=== PATIENT | female | born 1990 ===

== ENCOUNTER 2018-03-03 12:01 | Emergency (ER) | payer SELFPAY ==
[2018-03-03 12:16] VITALS: BMI 41.5
[2018-03-03 12:24] VITALS: RESP 18; O2SAT 98
[2018-03-03] MEDS ORDERED: Aluminum Hydroxide/Magnesium 30 ML, DiphenhydrAMINE 75 MG, Lidocaine 2% Viscous 30 ML PO ONE (12:30)
--- NOTE | 2018-03-03 12:34 | ED PDOC ---
Arrival/HPI - General Chief Complaint: Dental Pain Time Seen by Provider: 03/03/18 12:04 Historian: Patient - History of Present Illness Narrative History of Present Illness (Text): 03/03/18 12:30 28 y/o F w/ no past medical history presenting to the Emergency Room for left sided neck lump she discovered over 1 week ago. The patient reports tenderness to palpation, odynophagia and pain with chewing to the left jaw. She reports going to her PMD who prescribed her a dose of Amoxacillin in which she saw no improvement in pain and was then instructed to have CT imaging performed. She also reports seeing an ENT physician who prescribed her doxycycline with no change in symptoms. She had the CT scan performed and it revealed a reactive lymph node as well as a sialolith & since then has noted an increase in the size of the lump. PCP: Dr. Saucedo Time/Duration: > week Symptom Onset: Gradual Symptom Course: Unchanged Quality: Aching Activities at Onset: Rest Context: Home Past Medical History - Provider Review Nursing Documentation Reviewed: Yes - Travel History Have you recently traveled outside [place] w/in the past 3 mons?: No - Infectious Disease Hx of Infectious Diseases: None - Cardiac Hx Cardiac Disorders: No - Pulmonary Hx Respiratory Disorders: No - Neurological Hx Neurological Disorder: No - HEENT Hx HEENT Disorder: No - Renal Hx Renal Disorder: No - Endocrine/Metabolic Hx Diabetes Mellitus Type 2: Yes - Hematological/Oncological Hx Blood Disorders: No - Integumentary Hx Dermatological Disorder: No - Musculoskeletal/Rheumatological Hx Falls: No - Gastrointestinal Hx Gastrointestinal Disorders: No - Genitourinary/Gynecological Hx Genitourinary Disorders: No - Psychiatric Hx Psychophysiologic Disorder: No Hx Depression: No Hx Emotional Abuse: No Hx Physical Abuse: No Hx Substance Use: Yes - Surgical History Hx Orthopedic Surgery: Yes (fx left femur) - Suicidal Assessment Feels Threatened In Home Enviroment: No Family/Social History - Physician Review Nursing Documentation Reviewed: Yes Family/Social History: Unknown Family HX Smoking Status: Never Smoked Hx Alcohol Use: Yes (SOCIALLY) Hx Substance Use: Yes Substance used: CANNABIS Hx Substance Use Treatment: No Allergies/Home Meds Allergies/Adverse Reactions: Allergies No Known Allergies Allergy (Verified 01/09/17 06:37) Home Medications: Home Meds Medication Instructions Recorded Confirmed Norethindrone-E.estradiol-Iron 1 tab PO DAILY 08/22/11 01/09/17 [Loestrin 24 Fe 20 Mcg-75 mg-1 mg] Physical Exam Vital Signs Temp Pulse Resp BP Pulse Ox 03/03/18 12:02 98 F 104 H 18 160/110 H 98 Medical Decision Making ED Course and Treatment: 03/03/18 12:49 Impression 28 y/o F w/ left sided neck lump Differential Diagnoses Includes But Is Not Limited To: --Sialoadenitis/Sialolith --Reactive Lymphadenitis --Brachial Cleft Cyst Plan --Magic Mouthwash --Percocet --Bedside US --Surgery/ENT consult --Reassess & disposition Progress Notes 03/03/18 13:11 Surgery resident evaluates patient at the bedside, confirming sialolith presence seen on bedside. 03/03/18 13:[address] Abdalla(ENT) who recommends patient to come see him in office tomorrow. He recommends continued warm compresses and milking for the expression of the stone through the duct. Shared decision making for appropriate follow up care discussed with patient who agrees with management plan. She will continue conservative management at home and will follow up with ENT. She is stable for discharge. Disposition/Present on Arrival - Present on Arrival Any Indicators Present on Arrival: Yes History of DVT/PE: No History of Uncontrolled Diabetes: Yes Urinary Catheter: No History of Decub. Ulcer: No History Surgical Site Infection Following: None - Disposition Have Diagnosis and Disposition been Completed?: Yes Diagnosis: Sialolithiasis of submandibular gland, Sialadenitis Disposition: HOME/ ROUTINE Disposition Time: 13:23 Patient Plan: Discharge Condition: STABLE Discharge Instructions (ExitCare): Salivary Gland Infection (DC) Print Language: KOSOVAN Additional Instructions: Please follow up with Dr. Abdalla(ENT) at the beginning of the day tomorrow Continue warm compresses to the area and gently massage the area. Prescriptions: Acetaminophen/Oxycodone Hydr [Oxycodone and Acetaminophen 325 mg-2.5 mg] 1 tab PO Q8H #4 tab Mag&Al/Simet/Diphen/Lido [First Magic Mouthwash] 30 ml MM Q6H #1 kit Referrals: Ryan Abdalla DO [Staff Provider] - Follow up with primary Vance Saucedo DO [Family Provider] - Follow up with primary Forms: [employer] (Nepali)
[2018-03-03] MEDS ORDERED: Oxycodone/Acetaminophen 5/325 mg Tab PO STA (13:23)
[2018-03-03 14:07] VITALS: BP 155/89; TEMP 98
[2018-03-03 14:09] VITALS: PULSE 98
== END 2018-03-03 14:07 | disposition home or self-care (01) ==
LOC: ED 12:01
DX: K11.5 Sialolithiasis (principal); K11.20 Sialoadenitis, unspecified; E11.9 Type 2 diabetes mellitus without complications

== ENCOUNTER 2018-03-07 01:08 | Inpatient (IN) | payer OTHER ==
[2018-03-07 01:08] VITALS: BMI 29.8
[2018-03-07] MEDS ORDERED: Sodium Chloride 0.9% 1,000 ML IV SCH (01:45)
[2018-03-07] MEDS ORDERED: Morphine 4 mg/ml ISec IVP STA ×2 (01:45→02:04)
--- NOTE | 2018-03-07 02:04 | ED PDOC ---
Arrival/HPI - General Chief Complaint: ENT Problem Time Seen by Provider: 03/07/18 01:28 Historian: Patient - History of Present Illness Narrative History of Present Illness (Text): 03/07/18 01:44 28 year old female, with no significant past medical history, presents to the emergency department with left sided neck lump she discovered over 2 weeks ago. Patient informs having tenderness and worsening odynophagia. Patient informs that between her visits to her PMD and ENT, she has taken Amoxacillin and doxycycline with no change in symptoms. Patient states she had a CT scan performed and it revealed a reactive lymph node as well as a sialolith & since then has noted an increase in the size of the lump. Patient states she went to [facility] today and waited 9 hours for admission. Patient states they planned to give her IV antibiotics, but they kept her waiting in the [place]otts. Patient was given Percocet and Morphine for her pain, and Unasyn (Last dose 23:00). Patient came here for admission given that she was waiting at [facility] too long. She denies any worsening symptoms over the day. Patient denies any headache, dizziness, chest pain, shortness of breath, cough, abdominal pain, nausea, vomiting, diarrhea, back pain, or any other complaint. PCP: Dr. Saucedo ENT: Dr. Nicholas Time/Duration: > week (2 weeks) Symptom Course: Unchanged Activities at Onset: Light Past Medical History - Provider Review Nursing Documentation Reviewed: Yes - Infectious Disease Hx of Infectious Diseases: None - Cardiac Hx Cardiac Disorders: No - Pulmonary Hx Respiratory Disorders: No - Neurological Hx Neurological Disorder: No - HEENT Hx HEENT Disorder: No - Renal Hx Renal Disorder: No - Endocrine/Metabolic Hx Diabetes Mellitus Type 2: Yes - Hematological/Oncological Hx Blood Disorders: No - Integumentary Hx Dermatological Disorder: No - Musculoskeletal/Rheumatological Hx Falls: No - Gastrointestinal Hx Gastrointestinal Disorders: No - Genitourinary/Gynecological Hx Genitourinary Disorders: No - Psychiatric Hx Psychophysiologic Disorder: No Hx Depression: No Hx Emotional Abuse: No Hx Physical Abuse: No Hx Substance Use: Yes - Surgical History Hx Orthopedic Surgery: Yes (fx left femur) Hx Tonsillectomy: Yes - Anesthesia Hx Anesthesia: Yes Hx Anesthesia Reactions: No Hx Malignant Hyperthermia: No - Suicidal Assessment Feels Threatened In Home Enviroment: No Family/Social History - Physician Review Nursing Documentation Reviewed: Yes Family/Social History: No Known Family HX Smoking Status: Never Smoked Hx Alcohol Use: Yes (SOCIALLY) Hx Substance Use: Yes Substance used: CANNABIS Hx Substance Use Treatment: No Allergies/Home Meds Allergies/Adverse Reactions: Allergies No Known Allergies Allergy (Verified 03/07/18 01:27) Home Medications: Home Meds Medication Instructions Recorded Confirmed Norethindrone-E.estradiol-Iron 1 tab PO DAILY 08/22/11 03/07/18 [Loestrin 24 Fe 20 Mcg-75 mg-1 mg] Review of Systems - Physician Review All systems were reviewed & negative as marked: Yes - Review of Systems Constitutional: absent: Fatigue, Weight Change Eyes: absent: Vision Changes, Photophobia ENT: Sore Throat. absent: Hearing Changes, Tinnitus, Voice Changes, Rhinorrhea, Epistaxis, Sinus Congestion Respiratory: absent: SOB, Cough, Sputum Cardiovascular: absent: Chest Pain Gastrointestinal: absent: Abdominal Pain, Diarrhea, Nausea, Vomiting Musculoskeletal: absent: Neck Pain Neurological: absent: Headache, Dizziness Physical Exam Vital Signs Reviewed: Yes Vital Signs Temp Pulse Resp BP Pulse Ox 03/07/18 01:22 97.4 F L 113 H 18 135/93 H 100 Temperature: Afebrile Blood Pressure: Hypertensive Pulse: Tachycardic Respiratory Rate: Normal Appearance: Positive for: Well-Appearing, Non-Toxic, Comfortable Pain Distress: None Mental Status: Positive for: Alert and Oriented X 3 - Systems Exam Head: Present: Atraumatic, Normocephalic Pupils: Present: PERRL Extroacular Muscles: Present: EOMI Conjunctiva: Present: Normal Mouth: Present: Moist Mucous Membranes, Normal Lips, Normal Tounge, Normal Teeth. No: Drooling, Trismus Neck: Present: Lymphadenopathy (with submandibular swelling), Trachea Midline, Other (no ludwigs angina, able to open mouth well. no uvula deviation or peritonsillar abscess. No floor erythema. ). No: Meningeal Signs, MIDLINE TENDERNESS, JVD, Bruit Respiratory/Chest: Present: Clear to Auscultation, Good Air Exchange. No: Respiratory Distress, Accessory Muscle Use Cardiovascular: Present: Regular Rate and Rhythm, Normal S1, S2. No: Murmurs Abdomen: No: Tenderness, Distention, Peritoneal Signs Back: Present: Normal Inspection Upper Extremity: Present: Normal Inspection. No: Cyanosis, Edema Lower Extremity: Present: Normal Inspection. No: Edema Neurological: Present: GCS=15, CN II-XII Intact, Speech Normal Skin: Present: Warm, Dry, Normal Color. No: Rashes Psychiatric: Present: Alert, Oriented x 3, Normal Insight, Normal Concentration Medical Decision Making ED Course and Treatment: 03/07/18 02:12 Impression: 28 year old female presents with lymphadenopathy, submandibular. Was previously seen at [facility] and had CT as well as abx and pain control but pt left AMA 2/2 difficultly getting a room. She notes that her swelling has not worsened since then and she is still able to tolerate pills and water without issue. Uvula midline without change in phonation. Pt notes x2 weeks of dysphagia. No drooling or tripoding on exam. Likely submandibular lymphadentitis, recurrent. Plan: -- Labs -- EKG -- CMP -- CBC -- Morphine -- Zofran -- Unasyn -- Blood Cultures -- Reassess and disposition Prior Visits: Notes and results from previous visits were reviewed. Patient was last seen in the emergency department on Progress Notes: 03/07/18 02:19 EKG reviewed by me, shows: Sinus tachycardia @108bpm No STEMI 03/07/18 02:[address] Nicholas who states pt had CT at [facility] and not need patient to be rescanned. Asks that patient be admitted under Dr Saucedo- pt may need surgery if x3d abx fail. Pt in NAD and agreeable to admission plan. labs largely unremarkable - Scribe Statement The provider has reviewed the documentation as recorded by the Maranda Merlos Provider Scribe Attestation: All medical record entries made by the Scribdipti were at my direction and pers onally dictated by me. I have reviewed the chart and agree that the record accurately reflects my personal performance of the history, physical exam, medical decision making, and the department course for this patient. I have also personally directed, reviewed, and agree with the discharge instructions and disposition. Disposition/Present on Arrival - Present on Arrival Any Indicators Present on Arrival: No History of DVT/PE: No History of Uncontrolled Diabetes: Yes Urinary Catheter: No History of Decub. Ulcer: No History Surgical Site Infection Following: None - Disposition Have Diagnosis and Disposition been Completed?: Yes Diagnosis: Submandibular lymphadenitis Disposition Time: 02:19 Condition: GOOD
[2018-03-07 02:11] LABS: BASO # 0.03 K/mm3 (0.0-2.0); BASO % 0.6 % (0.0-3.0); EOS % 0.2 % (1.5-5.0); GRAN # 3.25 (1.4-6.5); GRAN % 67.4 % (50.0-68.0); HEMOGLOBIN 12.1 g/dL (12.0-16.0); LYMPH # 1.1 (1.2-3.4); LYMPH % 23.7 % (22.0-35.0); MEAN CELL VOLUME 82.4 fl (80.0-105.0); MEAN CORPUSCULAR HEMOGLOBIN 27.4 pg (25.0-35.0); MEAN CORPUSCULAR HGB CONC 33.2 g/dl (31.0-37.0); MEAN PLATELET VOLUME 10.5 fl (7.0-11.0); MONO # 0.4 (0.1-0.6); MONO % 8.1 % (1.0-6.0); RBC 4.42 10^6/uL (3.5-6.1); RED CELL DISTRIBUTION WIDTH 12.7 % (11.5-14.5); WHITE BLOOD COUNT 4.8 10^3/uL (4.5-11.0)
[2018-03-07 02:20] LABS: ALB/GLOB RATIO 1.2 (1.1-1.8); ALBUMIN 4.6 g/dL (3.0-4.8); ALT/SGPT 73 U/L (7-56); AST/SGOT 62 U/L (14-36); BLOOD UREA NITROGEN 7 mg/dL (7-21); CALCIUM 8.7 mg/dL (8.4-10.5); GFR NON-AFRICAN AMERICAN > 60
[2018-03-07 02:40] LABS: VENOUS BLOOD GAS BASE EXCESS 1.2 mmol/L (0.0-2.0); VENOUS BLOOD GAS PO2 47 mm/Hg (30-55); VENOUS BLOOD PH 7.35 (7.32-7.43)
[2018-03-07] MEDS ORDERED: Morphine 4 mg/ml ISec IVP PRN (09:14)
[2018-03-07] MEDS: Insulin Reg-MEDIUM-Coverage SC SCH ×3 (11:30→21:58)
--- NOTE | 2018-03-07 12:45 | CP.PCM.CON ---
<Matt Olivo - Last Filed: 03/07/18 14:50> History of Present Illness - History of Present Illness History of Present Illness: ENT Consult note for Dr. Nicholas 28F with no significal PMHx, presents to [facility] with complaints of left sided tender neck mass. Patient states she first noticed mass a little over two weeks ago. She states the mass along her mandible has gotten bigger and she is now having difficulty chewing and swallowing. Patient had been prescribed amoxicillin and doxycycline as outpatient but her symptoms have not resolved. At time of examination patient complained of headache. She also reported radiation of pain from her mandible and throughout left side of face. Denies chest pain/shortness of breath, nausea/vomiting, abdominal pain, dysuria. Past Patient History - Infectious Disease Hx of Infectious Diseases: None - Past Social History Smoking Status: Never Smoked - CARDIAC Hx Cardiac Disorders: No - PULMONARY Hx Respiratory Disorders: No - NEUROLOGICAL Hx Neurological Disorder: No - HEENT Hx HEENT Problems: No - RENAL Hx Chronic Kidney Disease: No - ENDOCRINE/METABOLIC Hx Diabetes Mellitus Type 2: Yes - HEMATOLOGICAL/ONCOLOGICAL Hx Blood Disorders: No - INTEGUMENTARY Hx Dermatological Problems: No - MUSCULOSKELETAL/RHEUMATOLOGICAL Hx Falls: No - GASTROINTESTINAL Hx Gastrointestinal Disorders: No - GENITOURINARY/GYNECOLOGICAL Hx Genitourinary Disorders: No - PSYCHIATRIC Hx Psychophysiologic Disorder: No Hx Depression: No Hx Emotional Abuse: No Hx Physical Abuse: No Hx Substance Use: Yes - SURGICAL HISTORY Hx Orthopedic Surgery: Yes (fx left femur) Hx Tonsillectomy: Yes - ANESTHESIA Hx Anesthesia: Yes Hx Anesthesia Reactions: No Hx Malignant Hyperthermia: No Meds Allergies/Adverse Reactions: Allergies Allergy/AdvReac Type Severity Reaction Status Date / Time No Known Allergies Allergy Verified 03/07/18 01:27 - Medications Medications: Current Medications Sodium Chloride (Sodium Chloride 0.9%) 1,000 mls @ 100 mls/hr IV .Q10H AMRIT Last Admin: 03/07/18 02:00 Dose: 100 mls/hr Meropenem (Merrem Iv 1 Gm Premix) 1 gm in 50 mls @ 12.5 mls/hr IVPB Q8 AMRIT; Protocol Stop: 03/16/18 14:01 Insulin Human Regular (Humulin R Med) 0 units SC ACHS [facility]; Protocol Morphine Sulfate (Morphine) 4 mg IVP Q3H PRN PRN Reason: Pain, moderate (4-7) Last Admin: 03/07/18 09:49 Dose: 4 mg Ondansetron HCl (Zofran Inj) 4 mg IVP Q6H PRN PRN Reason: Nausea/Vomiting Results - Vital Signs Recent Vital Signs: Last Vital Signs Temp 99 F 03/07/18 08:05 Pulse 101 H 03/07/18 08:05 Resp 20 03/07/18 08:05 BP 126/87 03/07/18 08:05 Pulse Ox 99 03/07/18 08:05 - Labs Result Diagrams: 03/07/18 01:56 03/07/18 01:56 Labs: Laboratory Results - last 24 hr 03/07/18 03/07/18 03/07/18 01:56 01:56 02:15 WBC 4.8 RBC 4.42 Hgb 12.1 Hct 36.4 MCV 82.4 MCH 27.4 MCHC 33.2 RDW 12.7 Plt Count 190 MPV 10.5 Gran % 67.4 Lymph % (Auto) 23.7 Vermillion % (Auto) 8.1 H Eos % (Auto) 0.2 L Baso % (Auto) 0.6 Gran # 3.25 Lymph # (Auto) 1.1 L Vermillion # (Auto) 0.4 Eos # (Auto) 0.0 Baso # (Auto) 0.03 pO2 47 VBG pH 7.35 VBG pCO2 50.0 VBG HCO3 27.6 VBG Total CO2 29.1 H VBG O2 Sat (Calc) 86.8 H VBG Base Excess 1.2 VBG Potassium 3.6 Glucose 120 H Lactate 1.1 FiO2 21.0 Sodium 139 140.0 Potassium 3.8 Chloride 105 104.0 Carbon Dioxide 25 Anion Gap 13 BUN 7 Creatinine 0.7 Est GFR ( Amer) > 60 Est GFR (Non-Af Amer) > 60 POC Glucose (mg/dL) Random Glucose 124 H Calcium 8.7 Total Bilirubin 0.6 AST 62 H D ALT 73 H Alkaline Phosphatase 79 Total Protein 8.4 H Albumin 4.6 Globulin 3.8 Albumin/Globulin Ratio 1.2 Venous Blood Potassium 3.6 03/07/18 11:14 WBC RBC Hgb Hct MCV MCH MCHC RDW Plt Count MPV Gran % Lymph % (Auto) Vermillion % (Auto) Eos % (Auto) Baso % (Auto) Gran # Lymph # (Auto) Vermillion # (Auto) Eos # (Auto) Baso # (Auto) pO2 VBG pH VBG pCO2 VBG HCO3 VBG Total CO2 VBG O2 Sat (Calc) VBG Base Excess VBG Potassium Glucose Lactate FiO2 Sodium Potassium Chloride Carbon Dioxide Anion Gap BUN Creatinine Est GFR ( Amer) Est GFR (Non-Af Amer) POC Glucose (mg/dL) 96 Random Glucose Calcium Total Bilirubin AST ALT Alkaline Phosphatase Total Protein Albumin Globulin Albumin/Globulin Ratio Venous Blood Potassium Assessment & Plan - Assessment and Plan (Free Text) Assessment: 28F w/ lymphadenitis Plan: -At this time will recommend continuation of IV ABx as per ID -May need eventual biopsy of lymph node should there be no response by next week -Medical management per primary team -D/w Dr. Yu Apple PGY3 <Vishnu Nicholas F - Last Filed: 03/07/18 19:19> Meds - Medications Medications: Current Medications Meropenem (Merrem Iv 1 Gm Premix) 1 gm in 50 mls @ 12.5 mls/hr IVPB Q8 [facility]; Protocol Stop: 03/16/18 14:01 Last Admin: 03/07/18 13:02 Dose: 12.5 mls/hr Dextrose/Sodium Chloride (Dextrose 5%/0.9% Ns 1000 Ml) 1,000 mls @ 100 mls/hr IV .Q10H [facility]RIT Last Admin: 03/07/18 12:57 Dose: 100 mls/hr Insulin Human Regular (Humulin R Med) 0 units SC ACHS [facility]; Protocol Last Admin: 03/07/18 16:30 Dose: Not Given Ketorolac Tromethamine (Toradol) 30 mg IVP Q6H PRN PRN Reason: Pain, moderate (4-7) Last Admin: 03/07/18 12:58 Dose: 30 mg Ondansetron HCl (Zofran Inj) 4 mg IVP Q6H PRN PRN Reason: Nausea/Vomiting Results - Vital Signs Recent Vital Signs: Last Vital Signs Temp 99.7 F H 03/07/18 14:29 Pulse 96 H 03/07/18 14:29 Resp 20 03/07/18 14:29 BP 125/85 03/07/18 14:29 Pulse Ox 97 03/07/18 14:29 - Labs Result Diagrams: 03/07/18 01:56 03/07/18 01:56 Labs: Laboratory Results - last 24 hr 03/07/18 03/07/18 03/07/18 01:56 01:56 02:15 WBC 4.8 RBC 4.42 Hgb 12.1 Hct 36.4 MCV 82.4 MCH 27.4 MCHC 33.2 RDW 12.7 Plt Count 190 MPV 10.5 Gran % 67.4 Lymph % (Auto) 23.7 Vermillion % (Auto) 8.1 H Eos % (Auto) 0.2 L Baso % (Auto) 0.6 Gran # 3.25 Lymph # (Auto) 1.1 L Vermillion # (Auto) 0.4 Eos # (Auto) 0.0 Baso # (Auto) 0.03 ESR pO2 47 VBG pH 7.35 VBG pCO2 50.0 VBG HCO3 27.6 VBG Total CO2 29.1 H VBG O2 Sat (Calc) 86.8 H VBG Base Excess 1.2 VBG Potassium 3.6 Glucose 120 H Lactate 1.1 FiO2 21.0 Sodium 139 140.0 Potassium 3.8 Chloride 105 104.0 Carbon Dioxide 25 Anion Gap 13 BUN 7 Creatinine 0.7 Est GFR ( Amer) > 60 Est GFR (Non-Af Amer) > 60 POC Glucose (mg/dL) Random Glucose 124 H Calcium 8.7 Total Bilirubin 0.6 AST 62 H D ALT 73 H Alkaline Phosphatase 79 Lactate Dehydrogenase C-Reactive Protein Total Protein 8.4 H Albumin 4.6 Globulin 3.8 Albumin/Globulin Ratio 1.2 Venous Blood Potassium 3.6 RPR Mycoplasma pneumon IgM 03/07/18 03/07/18 03/07/18 11:14 12:20 12:20 WBC RBC Hgb Hct MCV MCH MCHC RDW Plt Count MPV Gran % Lymph % (Auto) Vermillion % (Auto) Eos % (Auto) Baso % (Auto) Gran # Lymph # (Auto) Vermillion # (Auto) Eos # (Auto) Baso # (Auto) ESR 44 H pO2 VBG pH VBG pCO2 VBG HCO3 VBG Total CO2 VBG O2 Sat (Calc) VBG Base Excess VBG Potassium Glucose Lactate FiO2 Sodium Potassium Chloride Carbon Dioxide Anion Gap BUN Creatinine Est GFR ( Amer) Est GFR (Non-Af Amer) POC Glucose (mg/dL) 96 Random Glucose Calcium Total Bilirubin AST ALT Alkaline Phosphatase Lactate Dehydrogenase 767 H C-Reactive Protein 21.80 H Total Protein Albumin Globulin Albumin/Globulin Ratio Venous Blood Potassium RPR Mycoplasma pneumon IgM 03/07/18 03/07/18 03/07/18 12:20 12:20 16:32 WBC RBC Hgb Hct MCV MCH MCHC RDW Plt Count MPV Gran % Lymph % (Auto) Vermillion % (Auto) Eos % (Auto) Baso % (Auto) Gran # Lymph # (Auto) Vermillion # (Auto) Eos # (Auto) Baso # (Auto) ESR pO2 VBG pH VBG pCO2 VBG HCO3 VBG Total CO2 VBG O2 Sat (Calc) VBG Base Excess VBG Potassium Glucose Lactate FiO2 Sodium Potassium Chloride Carbon Dioxide Anion Gap BUN Creatinine Est GFR ( Amer) Est GFR (Non-Af Amer) POC Glucose (mg/dL) 86 Random Glucose Calcium Total Bilirubin AST ALT Alkaline Phosphatase Lactate Dehydrogenase C-Reactive Protein Total Protein Albumin Globulin Albumin/Globulin Ratio Venous Blood Potassium RPR Nonreactive Mycoplasma pneumon IgM Negative Assessment & Plan (1) Submandibular lymphadenitis Status: Acute (2) Pharyngitis Status: Acute Attending/Attestation - Attestation I have personally seen and examined this patient.: Yes I have fully participated in the care of the patient.: Yes I have reviewed all pertinent clinical information: Yes Notes (Text): I have examined the patient with father at bedside. Discussed findings of blood work and discussed Infectious Disease input. Plan to see if Antibiotics improve the condition over the next 1-2 days in no improvement open biopsy will be indicated. 03/07/18 19:17
[2018-03-07] MEDS: Dextrose 5%/0.9% NS 1,000 ML IV SCH (12:57)
[2018-03-07] MEDS: Meropenem IV 1 gm in NS 1 GM/50 ML BAG IVPB SCH ×2 (13:02→21:57)
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
--- NOTE | 2018-03-07 17:56 | CARD ---
APPROVED REPORT Date of service: 03/07/2018 EKG Measurement Heart [id number] <Conclusion> Sinus tachycardia Otherwise normal ECG
[2018-03-07] MEDS ORDERED: POLYETHYLENE GLYCOL 3350 17 GM/Dose PACKET PO ONE (21:15)
[2018-03-07] MEDS ORDERED: Morphine 2 mg/ml ISec IVP STA (23:26)
[2018-03-08] MEDS: Dextrose 5%/0.9% NS 1,000 ML IV SCH (03:44)
[2018-03-08] MEDS: Meropenem IV 1 gm in NS 1 GM/50 ML BAG IVPB SCH ×3 (05:45→22:46)
[2018-03-08 07:52] LABS: HEMOGLOBIN 11.5 g/dL (12.0-16.0); MEAN CELL VOLUME 82.2 fl (80.0-105.0); MEAN CORPUSCULAR HEMOGLOBIN 26.6 pg (25.0-35.0); MEAN CORPUSCULAR HGB CONC 32.3 g/dl (31.0-37.0); MEAN PLATELET VOLUME 10.6 fl (7.0-11.0); RBC 4.33 10^6/uL (3.5-6.1); RED CELL DISTRIBUTION WIDTH 12.6 % (11.5-14.5); WHITE BLOOD COUNT 3.9 10^3/uL (4.5-11.0)
[2018-03-08 08:04] LABS: ALB/GLOB RATIO 1.1 (1.1-1.8); ALBUMIN 4.1 g/dL (3.0-4.8); ALT/SGPT 82 U/L (7-56); AST/SGOT 69 U/L (14-36); BLOOD UREA NITROGEN 8 mg/dL (7-21); CALCIUM 8.5 mg/dL (8.4-10.5); GFR NON-AFRICAN AMERICAN > 60
[2018-03-08] MEDS: Insulin Reg-MEDIUM-Coverage SC SCH ×4 (08:06→22:36)
[2018-03-08] MEDS: HYDROmorphone 1 mg/ml ISec IVP PRN ×3 (11:48→20:11)
--- NOTE | 2018-03-08 15:06 | CP.PCM.PN ---
Subjective - Date & Time of Evaluation Date of Evaluation: 03/08/18 Time of Evaluation: 15:04 - Subjective Subjective: Pt seen and examined father at bedside with the patient. No change in pain level. Pt still diaphoretic Objective - Vital Signs/Intake and Output Vital Signs (last 24 hours): Temp Pulse Resp BP Pulse Ox 98.1 F 96 H 20 121/83 100 03/08/18 14:47 03/08/18 14:47 03/08/18 14:47 03/08/18 14:47 03/08/18 14:47 Intake and Output: 03/08/18 03/08/18 06:59 18:59 Intake Total 1640 Balance 1640 - Medications Medications: Current Medications Docusate Sodium (Colace) 100 mg PO DAILY [facility] Last Admin: 03/08/18 10:55 Dose: 100 mg Hydromorphone HCl (Dilaudid) 1 mg IVP Q3 PRN PRN Reason: Pain, moderate (4-7) Last Admin: 03/08/18 11:48 Dose: 1 mg Meropenem (Merrem Iv 1 Gm Premix) 1 gm in 50 mls @ 12.5 mls/hr IVPB Q8 [facility]; Protocol Stop: 03/16/18 14:01 Last Admin: 03/08/18 13:48 Dose: 12.5 mls/hr Dextrose/Sodium Chloride (Dextrose 5%/0.9% Ns 1000 Ml) 1,000 mls @ 100 mls/hr IV .Q10H [facility] Last Admin: 03/08/18 03:44 Dose: 100 mls/hr Insulin Human Regular (Humulin R Med) 0 units SC ACHS [facility]; Protocol Last Admin: 03/08/18 13:04 Dose: Not Given Ketorolac Tromethamine (Toradol) 30 mg IVP Q6H PRN PRN Reason: Pain, moderate (4-7) Last Admin: 03/08/18 09:47 Dose: 30 mg Ondansetron HCl (Zofran Inj) 4 mg IVP Q6H PRN PRN Reason: Nausea/Vomiting - Labs Labs: 03/08/18 07:00 03/08/18 07:00 - Head Exam Head Exam: ATRAUMATIC - Eye Exam Eye Exam: EOMI - ENT Exam ENT Exam: Mucous Membranes Moist - Neck Exam Neck Exam: Tenderness Additional comments: left neck adenopathy tender Assessment and Plan (1) Submandibular lymphadenitis Status: Acute (2) Pharyngitis Status: Acute - Assessment and Plan (Free Text) Plan: Schedule open bx of neck mass if OR is able to accommodate. your medical and infectious disease management
[2018-03-08 17:03] LABS: INR 1.2; PARTIAL THROMBOPLASTIN TIME 25.6 Seconds (25.1-36.5); PROTHROMBIN TIME 13.7 SECONDS (9.4-12.5)
--- NOTE | 2018-03-08 17:41 | PN ---
DATE: 03/08/2018 SUBJECTIVE: The patient is in bed, in no acute distress, nontoxic. PHYSICAL EXAMINATION: VITAL SIGNS: Temperature is 99, blood pressure is 118/70, respiratory rate of 18. HEENT: Unremarkable. NECK: Supple. LUNGS: Decreased breath sounds. HEART: Normal S1, S2. ABDOMEN: Soft, nontender. LABORATORY DATA: Examination reveals a white count of 3.9. Sed rate is 44. Chemistries were noted. The LFTs are elevated. C-reactive protein is elevated at 21. LDH is 767. PIPER is pending. The patient's mycoplasma is negative. HIV, fourth generation is negative. RPR is negative. Alireza-Mays virus is pending. Microbiology, blood cultures are negative. note is reviewed. ASSESSMENT AND PLAN: A 28-year-old female with morbid obesity, body mass index of 41 and diabetes mellitus, history of pharyngitis in the past, who is admitted with what appears to be a left-sided submental adenopathy, who has failed out course therapy, two courses of outpatient antibiotics. I agree with , the patient will need a lymph node biopsy and we will check on the Bartonella, cytomegalovirus, Alireza-Mays virus, and check on the final culture results. Currently, on meropenem. Awaiting for Ear, Nose, and Throat for lymph node biopsy. Ricardo Reed MD
[2018-03-09] MEDS: HYDROmorphone 1 mg/ml ISec IVP PRN ×4 (00:58→21:46)
[2018-03-09 07:28] LABS: HEMOGLOBIN 11.6 g/dL (12.0-16.0); MEAN CELL VOLUME 81.2 fl (80.0-105.0); MEAN CORPUSCULAR HEMOGLOBIN 27.3 pg (25.0-35.0); MEAN CORPUSCULAR HGB CONC 33.6 g/dl (31.0-37.0); MEAN PLATELET VOLUME 9.9 fl (7.0-11.0); RBC 4.25 10^6/uL (3.5-6.1); RED CELL DISTRIBUTION WIDTH 12.5 % (11.5-14.5); WHITE BLOOD COUNT 5.3 10^3/uL (4.5-11.0)
[2018-03-09] MEDS: Insulin Reg-MEDIUM-Coverage SC SCH ×4 (07:30→22:00)
[2018-03-09 07:40] LABS: ALB/GLOB RATIO 1.2 (1.1-1.8); ALBUMIN 4.3 g/dL (3.0-4.8); ALT/SGPT 81 U/L (7-56); AST/SGOT 75 U/L (14-36); BLOOD UREA NITROGEN 4 mg/dL (7-21); CALCIUM 8.5 mg/dL (8.4-10.5); GFR NON-AFRICAN AMERICAN > 60
--- NOTE | 2018-03-09 08:32 | HP ---
DATE OF EXAM: 03/07/2018 HISTORY OF PRESENT ILLNESS: I have been seeing her in the office over the past 2-3 weeks. She comes in with a swelling on her neck. I have given her couple of doses of antibiotics, hoping that would subside her swelling. I could not really see much of a source. At first I did not even tell her to drink fluids and rest, it still persisted. She is a 28-year-old female with a lump in the left side of the neck, it is very tender. I put her on amoxicillin, doxycycline, and sent her to ears, nose and throat doctor. She had a outpatient CAT scan, shows reactive lymph node and . There is also an increase in the size of the lymph node. She was actually at [facility] that we are going to put her in and gave her some antibiotics, but it could not get her bed, so she AMA'd and came here. There is type 2 diabetes with her. She has substance abuse of marijuana. She had surgery of the left femur in the past. SOCIAL HISTORY: No smoking cigarettes. FAMILY HISTORY: No family history. ALLERGIES: NO KNOWN DRUG ALLERGIES. MEDICATION: She is on a control pill. REVIEW OF SYSTEMS: She has pain under neck and a lymph gland that is large and swollen. No head trauma, otherwise the throat is killing her. She has very sore throat. Her neck is very swollen. No acute vision or hearing changes. No shortness of breath or cough. No chest pain or palpitations. No abdominal pain, nausea or vomiting. There is neck pain, throat pain, sore throat. No headache or dizziness. PHYSICAL EXAMINATION: GENERAL: She is well appearing, very uncomfortable, nontoxic, alert and oriented x3. VITAL SIGNS: A 97.4 temp, 113 pulse, 18 respiratory rate, 135/93 blood pressure. We will check on her blood pressure too, it was normal the last time I saw her, oxygen sat was 100%. HEENT: Head is atraumatic, normocephalic. Extraocular muscles intact. Pupils are equal and reactive to light. Throat very difficult to see anything due to her habitus of being very large lady. She has lymphadenopathy, some mandibular swelling. Trachea is midline. No angina. She could not open up her mouth. No uvula deviation, cannot see any tonsils. Not red at this time. No meningeal signs. LUNGS: Clear to auscultation with decreased breath sounds. HEART: Regular rate. Normal, S1 and S2. ABDOMEN: Soft, obese and nontender. Positive bowel sounds. No guarding. No rebound or CVA tenderness. EXTREMITIES: No edema. NEUROLOGIC: GCS is 15. Cranial nerves II-XII grossly intact. Normal speech. Alert and oriented x3. Normal insight. SKIN: Warm and dry. No apparent rashes or ulcers. LABORATORY DATA: She had test done. Sodium 139, potassium 3.8, BUN 7, creatinine 0.7, GFR is greater than 60, sugar is 124, calcium is 8.7, total bili is 0.6, AST is 62, ALT is 73, alk phos 79, total protein is 8.4, albumin is 4.6 and lipase 1.1. She has a 4.8 white count, 12.1 hemoglobin, 36.4 hematocrit and 190 platelets. There are consults for ears, nose and throat, had seen her before. I think she might need to be scoped, also surgery possibly for this persisting Infectious Disease on the case. She is in a lot of pain, I will put her morphine 4 mg IV every 3 that might not be an option, so still on IV fluids. She got a dose of Unasyn, I will continue that. She got some Zofran, I will continue that. We will check her labs tomorrow. I am hoping we will get more insight from ear, nose and throat, then might need to do another CAT scan of her head and neck. I will leave it up to ear, nose and throat associated with lymphadenitis, submandibular, persistent, failed outpatient treatment 3 times, seen the ear, nose and throat in the outpatient and still she is not doing well. Vance Saucedo DO MTDD
--- NOTE | 2018-03-09 08:35 | PN ---
DATE: 03/08/2018 SUBJECTIVE: I saw her in her room. She is not feeling well. The left side of the face is more swollen on IV Merrem, still somewhat painful. She has been on morphine at high doses, also Toradol is not helping. I will try her on Dilaudid to get a little more comfortable. She is also on Zofran. She has a hard time now swallowing a little bit due to the swelling. OBJECTIVE: VITAL SIGNS: She has a 99.5 temperature, it was 99.7 temperature earlier, 104 pulse, 118/75 blood pressure 16, respiratory rate, 96% O2 sat on room air. HEENT: Head: Atraumatic, normocephalic. She is talking with me. She is uncomfortable. She is able to swallow. Throat is little bit red. NECK: Swollen on the left side. HEART: Regular rate. LUNGS: Decreased breath sounds but clear. ABDOMEN: Soft, obese. EXTREMITIES: No edema. MEDICATIONS: She is on Colace, dextrose IV, Dilaudid now, insulin, Merrem IV, Toradol, Zofran and we start with morphine. LABORATORY DATA: She has a white count of 3.9, hemoglobin 11.5, hematocrit 35.6, platelets 158. 137 sodium, potassium 3.6, BUN 8, creatinine 0.74, zero 60, sugar is 121, calcium is 8.5, total bili is 0.3, AST is 69, ALT is 82, alk phos 70. C-reactive protein is high at 21.8. Lactate dehydrogenase is high at 767, total protein is 7.8. If the swelling continues and does not improve with the IV antibiotics, I am hoping ENT will biopsy this left side of the face swelling and mass and we will follow with Dr. Reed Infectious Disease. Continue with aggressive treatment and care on Ja Mclaughlin, failed 2 rounds of antibiotics. Vance Saucedo DO
--- NOTE | 2018-03-09 09:47 | RAD ---
Date of service: 03/09/2018 HISTORY: Surgery biopsy COMPARISON: 01/24/2017 TECHNIQUE: Chest PA and lateral FINDINGS: LUNGS: No active pulmonary disease. PLEURA: No significant pleural effusion identified. No pneumothorax apparent. CARDIOVASCULAR: No aortic atherosclerotic calcification present. Normal cardiac size. No pulmonary vascular congestion. OSSEOUS STRUCTURES: No significant abnormalities. VISUALIZED UPPER ABDOMEN: Normal. OTHER FINDINGS: None. IMPRESSION: No active disease.
[2018-03-09] MEDS: Meropenem IV 1 gm in NS 1 GM/50 ML BAG IVPB SCH ×2 (09:55→18:42)
--- NOTE | 2018-03-09 13:00 | PN ---
DATE: 03/09/2018 SUBJECTIVE: She is uncomfortable in bed, she is in pain. She has multiple medications on board, Colace, dextrose, Dilaudid, insulin, Merrem, Toradol, Tylenol, Zofran, she is also nauseous. PHYSICAL EXAMINATION: VITAL SIGNS: She has had 100.2 temp last night, 98 pulse, 137/88 blood pressure, 20 respiratory rate, 97% O2 sat on room air. HEENT: Head is atraumatic, normocephalic. Left side of her face is very swollen, of course the left cheek, difficult for her to swallow well, but she is swallowing. HEART: Regular rate. LUNGS: Decreased breath sounds. ABDOMEN: Soft, obese, nontender. EXTREMITIES: No edema. LABORATORY DATA: She has a 128 sodium, 3.8 potassium, BUN 12, creatinine 0.8, GFR is greater than 60, sugar is 148, calcium is 8.5, total bili is 0.4, AST is 75, ALT is 81, alk phos is 85, total protein is 7.9. White count is 5.3, hemoglobin is 11.6, hematocrit 34.5, platelets are 145. ASSESSMENT AND PLAN: She is being seen by Infectious Disease and Ear, Nose and Throat. She is going to go for biopsy today with ENT. Continue with aggressive treatment. She also having nausea and vomiting this morning, I gave her some Zofran, the chest x-ray is pending. She is n.p.o. We will check her labs tomorrow. Continue with aggressive treatment and care. Hopefully, biopsy will let us know what we are dealing with and I will continue with aggressive treatment and care. The left side of her face . Vance Saucedo DO MTDD
--- NOTE | 2018-03-09 14:15 | US ---
Date of service: 03/09/2018 HISTORY: elevated LFTs. r/o splenomegaly COMPARISON: None. TECHNIQUE: Sonographic evaluation of the abdomen. FINDINGS: LIVER: Measures 18.3 cm. Increased echogenicity of the liver parenchyma. No mass. No intrahepatic bile duct dilatation. GALLBLADDER: Unremarkable. No gallstones. COMMON BILE DUCT: Measures 3.7 mm. No stones. No dilatation. PANCREAS: Unremarkable as visualized. No mass. No ductal dilatation. RIGHT KIDNEY: Measures 11.9 x 3.3 x 5.1cm. Normal echogenicity. No calculus, mass, or hydronephrosis. LEFT KIDNEY: Measures 12.0 x 4.4 x 5.8cm. Normal echogenicity. No calculus, mass, or hydronephrosis. SPLEEN: Normal in size and contour. No mass. 12.3 x 5.7 x 4.9 AORTA: No aneurysmal dilatation. IVC: Unremarkable. OTHER FINDINGS: None. IMPRESSION: Echogenic liver. Probable fatty infiltration. No evidence of splenomegaly
--- NOTE | 2018-03-09 15:15 | CP.PCM.PN ---
<Anibal Pierre - Last Filed: 03/09/18 15:17> Subjective - Date & Time of Evaluation Date of Evaluation: 03/09/18 Time of Evaluation: 15:13 - Subjective Subjective: ENT Progress note- Dr. Nicholas Patient seen and examined at bedside. Remains tender in the cervical region. Plan for OR today for biopsy Objective - Vital Signs/Intake and Output Vital Signs (last 24 hours): Temp Pulse Resp BP Pulse Ox 99.4 F 92 H 20 125/85 98 03/09/18 13:11 03/09/18 13:11 03/09/18 13:11 03/09/18 13:11 03/09/18 13:11 Intake and Output: 03/09/18 03/09/18 06:59 18:59 Intake Total 1200 Balance 1200 - Medications Medications: Current Medications Acetaminophen (Tylenol 325mg Tab) 650 mg PO Q4H PRN PRN Reason: Fever >100.4 F Last Admin: 03/09/18 09:55 Dose: 650 mg Docusate Sodium (Colace) 100 mg PO DAILY [facility] Last Admin: 03/09/18 09:54 Dose: 100 mg Hydromorphone HCl (Dilaudid) 1 mg IVP Q3 PRN PRN Reason: Pain, moderate (4-7) Last Admin: 03/09/18 09:54 Dose: 1 mg Meropenem (Merrem Iv 1 Gm Premix) 1 gm in 50 mls @ 12.5 mls/hr IVPB Q8 [facility]; Protocol Stop: 03/16/18 14:01 Last Admin: 03/09/18 09:55 Dose: 12.5 mls/hr Dextrose/Sodium Chloride (Dextrose 5%/0.9% Ns 1000 Ml) 1,000 mls @ 100 mls/hr IV .Q10H [facility] Last Admin: 03/08/18 03:44 Dose: 100 mls/hr Insulin Human Regular (Humulin R Med) 0 units SC ACHS [facility]; Protocol Last Admin: 03/09/18 11:30 Dose: Not Given Ketorolac Tromethamine (Toradol) 30 mg IVP Q6H PRN PRN Reason: Pain, moderate (4-7) Last Admin: 03/09/18 12:08 Dose: 30 mg Ondansetron HCl (Zofran Inj) 4 mg IVP Q6H PRN PRN Reason: Nausea/Vomiting Last Admin: 03/09/18 09:54 Dose: 4 mg - Labs Labs: 03/09/18 07:00 03/09/18 07:00 PT 13.7 SECONDS (9.4-12.5) H 03/08/18 16:35 INR 1.20 03/08/18 16:35 APTT 25.6 Seconds (25.1-36.5) 03/08/18 16:35 - Constitutional Appears: Non-toxic, No Acute Distress - Head Exam Head Exam: ATRAUMATIC - Eye Exam Eye Exam: EOMI. absent: Scleral icterus - ENT Exam Additional comments: Palpable nodes on neck painful to palpation - Respiratory Exam Respiratory Exam: NORMAL BREATHING PATTERN. absent: Accessory Muscle Use, Respiratory Distress - Cardiovascular Exam Cardiovascular Exam: REGULAR RHYTHM, +S1, +S2. absent: Bradycardia, Tachycardia - GI/Abdominal Exam GI & Abdominal Exam: Soft. absent: Distended, Firm, Guarding, Rigid, Tenderness - Extremities Exam Extremities Exam: absent: Calf Tenderness - Neurological Exam Neurological Exam: Alert, Awake, Oriented x3 - Skin Skin Exam: Intact, Warm Assessment and Plan - Assessment and Plan (Free Text) Assessment: 28F Left neck adenopathy Plan: Plan for OR today for lymph node biopsy discussed w/ Dr. Yu Pierre PGY2 <Vishnu Nicholas - Last Filed: 03/09/18 15:20> Objective - Vital Signs/Intake and Output Vital Signs (last 24 hours): Temp Pulse Resp BP Pulse Ox 99.4 F 92 H 20 125/85 98 03/09/18 13:11 03/09/18 13:11 03/09/18 13:11 03/09/18 13:11 03/09/18 13:11 Intake and Output: 03/09/18 03/09/18 06:59 18:59 Intake Total 1200 Balance 1200 - Medications Medications: Current Medications Acetaminophen (Tylenol 325mg Tab) 650 mg PO Q4H PRN PRN Reason: Fever >100.4 F Last Admin: 03/09/18 09:55 Dose: 650 mg Docusate Sodium (Colace) 100 mg PO DAILY [facility] Last Admin: 03/09/18 09:54 Dose: 100 mg Hydromorphone HCl (Dilaudid) 1 mg IVP Q3 PRN PRN Reason: Pain, moderate (4-7) Last Admin: 03/09/18 09:54 Dose: 1 mg Meropenem (Merrem Iv 1 Gm Premix) 1 gm in 50 mls @ 12.5 mls/hr IVPB Q8 [facility]; P rotocol Stop: 03/16/18 14:01 Last Admin: 03/09/18 09:55 Dose: 12.5 mls/hr Dextrose/Sodium Chloride (Dextrose 5%/0.9% Ns 1000 Ml) 1,000 mls @ 100 mls/hr IV .Q10H [facility] Last Admin: 03/08/18 03:44 Dose: 100 mls/hr Insulin Human Regular (Humulin R Med) 0 units SC ACHS [facility]; Protocol Last Admin: 03/09/18 11:30 Dose: Not Given Ketorolac Tromethamine (Toradol) 30 mg IVP Q6H PRN PRN Reason: Pain, moderate (4-7) Last Admin: 03/09/18 12:08 Dose: 30 mg Ondansetron HCl (Zofran Inj) 4 mg IVP Q6H PRN PRN Reason: Nausea/Vomiting Last Admin: 03/09/18 09:54 Dose: 4 mg - Labs Labs: 03/09/18 07:00 03/09/18 07:00 PT 13.7 SECONDS (9.4-12.5) H 03/08/18 16:35 INR 1.20 03/08/18 16:35 APTT 25.6 Seconds (25.1-36.5) 03/08/18 16:35 Assessment and Plan (1) Submandibular lymphadenitis Status: Acute (2) Pharyngitis Status: Acute Attending/Attestation - Attestation I have personally seen and examined this patient.: Yes I have fully participated in the care of the patient.: Yes I have reviewed all pertinent clinical information, including history, physical exam and plan: Yes Notes (Text): 03/09/18 15:20 pt seen and examined OR today
[2018-03-09] MEDS ORDERED: Propofol 10 mg/ml Inj (20 ML) ONE (15:20)
[2018-03-09] MEDS ORDERED: Midazolam 2 MG/2 ML VIAL ONE (15:21)
[2018-03-09] MEDS ORDERED: Succinylcholine 200 mg/10 ml Inj IV ONE (15:23)
[2018-03-09] MEDS ORDERED: Lidocaine 1% w Epi 1:100,000 Inj ONE (15:29)
--- NOTE | 2018-03-09 15:48 | CP.PCM.PN ---
Subjective - Date & Time of Evaluation Date of Evaluation: 03/09/18 Time of Evaluation: 08:30 - Subjective Subjective: For biopsy of lymph nodes today, still with low grade fevers but no chills, no headache. Objective - Vital Signs/Intake and Output Vital Signs (last 24 hours): Temp Pulse Resp BP Pulse Ox 100.2 F H 90 20 137/88 97 03/09/18 09:55 03/09/18 06:00 03/09/18 06:00 03/09/18 06:00 03/09/18 06:00 Intake and Output: 03/09/18 03/09/18 06:59 18:59 Intake Total 1200 Balance 1200 - Medications Medications: Current Medications Acetaminophen (Tylenol 325mg Tab) 650 mg PO Q4H PRN PRN Reason: Fever >100.4 F Last Admin: 03/09/18 09:55 Dose: 650 mg Docusate Sodium (Colace) 100 mg PO DAILY [facility] Last Admin: 03/09/18 09:54 Dose: 100 mg Hydromorphone HCl (Dilaudid) 1 mg IVP Q3 PRN PRN Reason: Pain, moderate (4-7) Last Admin: 03/09/18 09:54 Dose: 1 mg Meropenem (Merrem Iv 1 Gm Premix) 1 gm in 50 mls @ 12.5 mls/hr IVPB Q8 [facility]; Protocol Stop: 03/16/18 14:01 Last Admin: 03/09/18 09:55 Dose: 12.5 mls/hr Dextrose/Sodium Chloride (Dextrose 5%/0.9% Ns 1000 Ml) 1,000 mls @ 100 mls/hr IV .Q10H [facility] Last Admin: 03/08/18 03:44 Dose: 100 mls/hr Insulin Human Regular (Humulin R Med) 0 units SC ACHS [facility]; Protocol Last Admin: 03/09/18 07:30 Dose: Not Given Ketorolac Tromethamine (Toradol) 30 mg IVP Q6H PRN PRN Reason: Pain, moderate (4-7) Last Admin: 03/08/18 09:47 Dose: 30 mg Ondansetron HCl (Zofran Inj) 4 mg IVP Q6H PRN PRN Reason: Nausea/Vomiting Last Admin: 03/09/18 09:54 Dose: 4 mg - Labs Labs: 03/09/18 07:00 03/09/18 07:00 PT 13.7 SECONDS (9.4-12.5) H 03/08/18 16:35 INR 1.20 03/08/18 16:35 APTT 25.6 Seconds (25.1-36.5) 03/08/18 16:35 - Constitutional Appears: Chronically Ill - Head Exam Head Exam: NORMAL INSPECTION - Respiratory Exam Respiratory Exam: Decreased Breath Sounds - Cardiovascular Exam Cardiovascular Exam: +S1, +S2 - GI/Abdominal Exam GI & Abdominal Exam: Soft. absent: Tenderness Assessment and Plan - Assessment and Plan (Free Text) Plan: Assessment pharyngitis with associated chronic submental lymphadenopathy, etiology to be determined history of Sepsis due to Group A strep pharyngitis DM morbid obesity with BMI 42 Plan Continue Merrem and follow up results of lymph node biopsy, should be tested for Bartonella, EBV, CMV will continue to monitor clinically
[2018-03-09] MEDS ORDERED: HYDROmorphone 0.5 mg/0.5 ml ISec IVP PRN (16:26)
[2018-03-09] MEDS ORDERED: Bacitracin Ointment 30 GM TUBE ONE (16:28)
[2018-03-09] MEDS ORDERED: Lactated Ringer's 1,000 ML IV SCH (16:30)
[2018-03-09] MEDS ORDERED: Liquid Adhesive TOP ONE (16:30)
[2018-03-09 16:37] LABS: HEPATITIS B SURFACE AG Negative (NEGATIVE)
[2018-03-09 16:42] LABS: HEPATITIS A IGM NEGATIVE (NEGATIVE); HEPATITIS B CORE AB NEGATIVE (NEGATIVE)
[2018-03-09 16:54] LABS: HEPATITIS C ANTIBODY NEGATIVE (NEGATIVE)
--- NOTE | 2018-03-09 17:02 | CP.PCM.CON ---
<Tyler Tsai - Last Filed: 03/09/18 17:07> History of Present Illness - History of Present Illness History of Present Illness: GI Fellow PGY4, Consult note. Macie Mclaughlin is a pleasant 28F with left tender neck mass. She has been having worsening neck pain, swelling x 1-2 months. 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 Her symptoms did not improve with antibiotics. She saw ENT specialist and had CT scan showing reactive adenopathy. She eventually came to the hospital because the symptoms were becoming severe. She has had fevers, vomiting, and found to have elevated liver tests. Today, she has nausea when taking the opiate mediations. This is relieved with zofran. PMHx - T2DM, obesity PShx- none FmHx - Grandmother had lymphoma SocHx- Smoke marijuana. Denies cigarettes, alcohol use. 12pt ROS completed, negative except for above. Past Patient History - Infectious Disease Hx of Infectious Diseases: None - Past Social History Smoking Status: Never Smoked - CARDIAC Hx Cardiac Disorders: No - PULMONARY Hx Respiratory Disorders: No - NEUROLOGICAL Hx Neurological Disorder: No - HEENT Hx HEENT Problems: No - RENAL Hx Chronic Kidney Disease: No - ENDOCRINE/METABOLIC Hx Diabetes Mellitus Type 2: Yes - HEMATOLOGICAL/ONCOLOGICAL Hx Blood Transfusions: No Hx Blood Transfusion Reaction: No - INTEGUMENTARY Hx Dermatological Problems: No - MUSCULOSKELETAL/RHEUMATOLOGICAL Hx Musculoskeletal Disorders: No - GASTROINTESTINAL Hx Gastrointestinal Disorders: No - GENITOURINARY/GYNECOLOGICAL Hx Genitourinary Disorders: No - PSYCHIATRIC Hx Emotional Abuse: No Hx Physical Abuse: No Hx Substance Use: Yes - SURGICAL HISTORY Hx Surgeries: Yes (tonsillectomy, L femur) - ANESTHESIA Hx Anesthesia Reactions: No Hx Malignant Hyperthermia: No Meds Allergies/Adverse Reactions: Allergies Allergy/AdvReac Type Severity Reaction Status Date / Time No Known Allergies Allergy Verified 03/07/18 01:27 - Medications Medications: Current Medications Acetaminophen (Tylenol 325mg Tab) 650 mg PO Q4H PRN PRN Reason: Fever >100.4 F Last Admin: 03/09/18 09:55 Dose: 650 mg Docusate Sodium (Colace) 100 mg PO DAILY [facility] Last Admin: 03/09/18 09:54 Dose: 100 mg Hydromorphone HCl (Dilaudid) 1 mg IVP Q3 PRN PRN Reason: Pain, moderate (4-7) Last Admin: 03/09/18 09:54 Dose: 1 mg Hydromorphone HCl (Dilaudid) 0.5 mg IVP Q15M PRN PRN Reason: Pain, severe (8-10) Stop: 03/09/18 18:26 Meropenem (Merrem Iv 1 Gm Premix) 1 gm in 50 mls @ 12.5 mls/hr IVPB Q8 [facility]; Protocol Stop: 03/16/18 14:01 Last Admin: 03/09/18 09:55 Dose: 12.5 mls/hr Dextrose/Sodium Chloride (Dextrose 5%/0.9% Ns 1000 Ml) 1,000 mls @ 100 mls/hr IV .Q10H [facility] Last Admin: 03/08/18 03:44 Dose: 100 mls/hr Lactated Ringer's (Lactated Ringer's) 1,000 mls @ 75 mls/hr IV .[id number] [facility] Stop: 03/09/18 18:31 Insulin Human Regular (Humulin R Med) 0 units SC ACHS [facility]; Protocol Last Admin: 03/09/18 11:30 Dose: Not Given Ketorolac Tromethamine (Toradol) 30 mg IVP Q6H PRN PRN Reason: Pain, moderate (4-7) Last Admin: 03/09/18 12:08 Dose: 30 mg Ondansetron HCl (Zofran Inj) 4 mg IVP Q6H PRN PRN Reason: Nausea/Vomiting Last Admin: 03/09/18 09:54 Dose: 4 mg Ondansetron HCl (Zofran Inj) 4 mg IVP ONCE PRN PRN Reason: Nausea/Vomiting Physical Exam - Constitutional Appears: Non-toxic, No Acute Distress - Head Exam Head Exam: ATRAUMATIC, NORMAL INSPECTION - Eye Exam Eye Exam: EOMI, Normal appearance - ENT Exam ENT Exam: Mucous Membranes Moist. absent: Normal Oropharynx - Neck Exam Neck exam: Positive for: Lymphadenopathy, Tenderness - Respiratory Exam Respiratory Exam: Clear to Auscultation Bilateral, NORMAL BREATHING PATTERN - Cardiovascular Exam Cardiovascular Exam: REGULAR RHYTHM, +S1, +S2 - GI/Abdominal Exam GI & Abdominal Exam: Normal Bowel Sounds, Soft. absent: Organomegaly, Tenderness - Neurological Exam Neurological exam: Alert, CN II-XII Intact, Oriented x3 - Psychiatric Exam Psychiatric exam: Normal Affect, Normal Mood - Skin Skin Exam: Dry, Normal Color Results - Vital Signs Recent Vital Signs: Last Vital Signs Temp 98.2 F 03/09/18 16:45 Pulse 97 H 03/09/18 16:45 Resp 18 03/09/18 16:45 BP 97/62 L 03/09/18 16:45 Pulse Ox 99 03/09/18 16:45 - Labs Result Diagrams: 03/09/18 07:00 03/09/18 07:00 Labs: Laboratory Results - last 24 hr 03/07/18 03/08/18 03/08/18 12:20 16:35 21:24 WBC RBC Hgb Hct MCV MCH MCHC RDW Plt Count MPV PT 13.7 H INR 1.20 APTT 25.6 Sodium Potassium Chloride Carbon Dioxide Anion Gap BUN Creatinine Est GFR ( Amer) Est GFR (Non-Af Amer) POC Glucose (mg/dL) 95 Random Glucose Calcium Total Bilirubin AST ALT Alkaline Phosphatase Total Protein Albumin Globulin Albumin/Globulin Ratio T.pallidum Ab (FTA-ABS) Nonreactive Hepatitis A IgM Ab Hep Bs Antigen Hep B Core IgM Ab Hepatitis C Antibody 03/09/18 03/09/18 03/09/18 06:55 07:00 07:00 WBC 5.3 D RBC 4.25 Hgb 11.6 L Hct 34.5 L MCV 81.2 MCH 27.3 MCHC 33.6 RDW 12.5 Plt Count 145 MPV 9.9 PT INR APTT Sodium 128 L Potassium 3.8 Chloride 96 L Carbon Dioxide 31 Anion Gap 6 L BUN 4 L Creatinine 0.8 Est GFR ( Amer) > 60 Est GFR (Non-Af Amer) > 60 POC Glucose (mg/dL) 139 H Random Glucose 148 H Calcium 8.5 Total Bilirubin 0.4 AST 75 H ALT 81 H Alkaline Phosphatase 80 Total Protein 7.9 Albumin 4.3 Globulin 3.6 Albumin/Globulin Ratio 1.2 T.pallidum Ab (FTA-ABS) Hepatitis A IgM Ab Hep Bs Antigen Hep B Core IgM Ab Hepatitis C Antibody 03/09/18 03/09/18 09:48 12:11 WBC RBC Hgb Hct MCV MCH MCHC RDW Plt Count MPV PT INR APTT Sodium Potassium Chloride Carbon Dioxide Anion Gap BUN Creatinine Est GFR ( Amer) Est GFR (Non-Af Amer) POC Glucose (mg/dL) 140 H Random Glucose Calcium Total Bilirubin AST ALT Alkaline Phosphatase Total Protein Albumin Globulin Albumin/Globulin Ratio T.pallidum Ab (FTA-ABS) Hepatitis A IgM Ab Negative Hep Bs Antigen Negative Hep B Core IgM Ab Negative Hepatitis C Antibody Negative Assessment & Plan - Assessment and Plan (Free Text) Assessment: #Tender neck mass, Left #Morbid obesity #Fatty liver #Elevated liver tests #Nausea/vomiting PLAN: -Elevated liver tests likely related to obesity, possible previous abx use or viral infection or sytemic illness. -U/S abdomen shows no focal hepatic disease. Liver is fatty. No splenomegaly. -Labs pending for possible viral etiology (EBV/CMV) etc. -Continue zofran PRN, IVF. Nausea/vomiting likely secondary to opiate use. Consider NSAIDs/tylenol as a replacement. -decrease diet to liquids if N/V continues -Neck biopsy results pending - Date & Time Date: 03/09/18 Time: 17:11 <Josef De La Garza - Last Filed: 03/10/18 11:38> Meds - Medications Medications: Current Medications Acetaminophen (Tylenol 325mg Tab) 650 mg PO Q4H PRN PRN Reason: Fever >100.4 F Last Admin: 03/09/18 21:44 Dose: 650 mg Docusate Sodium (Colace) 100 mg PO DAILY [facility] Last Admin: 03/10/18 09:45 Dose: 100 mg Hydromorphone HCl (Dilaudid) 1 mg IVP Q3 PRN PRN Reason: Pain, moderate (4-7) Last Admin: 03/10/18 08:15 Dose: 1 mg Dextrose/Sodium Chloride (Dextrose 5%/0.9% Ns 1000 Ml) 1,000 mls @ 100 mls/hr IV .Q10H [facility] Last Admin: 03/09/18 18:41 Dose: 100 mls/hr Vancomycin HCl (Vancomycin 1gm) 1 gm in 250 mls @ 167 mls/hr IVPB Q12H [facility]; Protocol Stop: 03/18/18 11:31 Insulin Human Regular (Humulin R Med) 0 units SC ACHS [facility]; Protocol Last Admin: 03/10/18 09:39 Dose: Not Given Ketorolac Tromethamine (Toradol) 30 mg IVP Q6H PRN PRN Reason: Pain, moderate (4-7) Last Admin: 03/09/18 12:08 Dose: 30 mg Ondansetron HCl (Zofran Inj) 4 mg IVP Q6H PRN PRN Reason: Nausea/Vomiting Last Admin: 03/10/18 08:08 Dose: 4 mg Ondansetron HCl (Zofran Inj) 4 mg IVP ONCE PRN PRN Reason: Nausea/Vomiting Results - Vital Signs Recent Vital Signs: Last Vital Signs Temp 100 F H 03/10/18 06:00 Pulse 98 H 03/10/18 06:00 Resp 20 03/10/18 06:00 BP 124/85 03/10/18 06:00 Pulse Ox 100 03/10/18 06:00 - Labs Result Diagrams: 03/10/18 07:30 03/10/18 07:30 Labs: Laboratory Results - last 24 hr 03/07/18 03/09/18 03/09/18 12:20 09:48 12:11 WBC RBC Hgb Hct MCV MCH MCHC RDW Plt Count MPV Sodium Potassium Chloride Carbon Dioxide Anion Gap BUN Creatinine Est GFR ( Amer) Est GFR (Non-Af Amer) POC Glucose (mg/dL) 140 H Random Glucose Calcium Total Bilirubin AST ALT Alkaline Phosphatase Total Protein Albumin Globulin Albumin/Globulin Ratio T.pallidum Ab (FTA-ABS) Nonreactive Hepatitis A IgM Ab Negative Hep Bs Antigen Negative Hep B Core IgM Ab Negative Hepatitis C Antibody Negative 03/09/18 03/09/18 03/10/18 18:36 21:37 06:33 WBC RBC Hgb Hct MCV MCH MCHC RDW Plt Count MPV Sodium Potassium Chloride Carbon Dioxide Anion Gap BUN Creatinine Est GFR ( Amer) Est GFR (Non-Af Amer) POC Glucose (mg/dL) 99 104 110 Random Glucose Calcium Total Bilirubin AST ALT Alkaline Phosphatase Total Protein Albumin Globulin Albumin/Globulin Ratio T.pallidum Ab (FTA-ABS) Hepatitis A IgM Ab Hep Bs Antigen Hep B Core IgM Ab Hepatitis C Antibody 03/10/18 03/10/18 03/10/18 07:30 07:30 11:03 WBC 5.9 RBC 4.32 Hgb 11.8 L Hct 35.3 L MCV 81.7 MCH 27.3 MCHC 33.4 RDW 12.6 Plt Count 147 MPV 10.8 Sodium 136 Potassium 3.9 Chloride 95 L Carbon Dioxide 35 H Anion Gap 10 BUN 6 L Creatinine 0.7 Est GFR ( Amer) > 60 Est GFR (Non-Af Amer) > 60 POC Glucose (mg/dL) 141 H Random Glucose 116 H Calcium 8.5 Total Bilirubin 0.5 AST 113 H D ALT 113 H Alkaline Phosphatase 80 Total Protein 8.1 Albumin 4.2 Globulin 4.0 Albumin/Globulin Ratio 1.0 L T.pallidum Ab (FTA-ABS) Hepatitis A IgM Ab Hep Bs Antigen Hep B Core IgM Ab Hepatitis C Antibody Attending/Attestation - Attestation I have personally seen and examined this patient.: Yes I have fully participated in the care of the patient.: Yes I have reviewed all pertinent clinical information: Yes Notes (Text): 03/09/19 Chart reviewed. Findings, assessment and management, as reflected above, were discussed with Dr. Tsai.
--- NOTE | 2018-03-09 17:09 | PCM.SURG1 ---
Surgeon's Initial Post Op Note - Surgeon's Notes Surgeon: Dr. Nicholas Dynamotor Repairer: Geovani PGY3, PGY2 Type of Anesthesia: General Endo Pre-Operative Diagnosis: Cervical Lymphadenopathy Operative Findings: Friable lymph nodes Post-Operative Diagnosis: as above Operation Performed: Incisional Biopsy of deep Cervical lymph node Specimen/Specimens Removed: 1. Fresh Deep cervical lymph node. 2. Formalin Deep cervical lymph node Estimated Blood Loss: EBL {In ML}: 5 Post-Op Condition: Good Date of Surgery/Procedure: 03/09/18 Time of Surgery/Procedure: 17:09
[2018-03-09] MEDS ORDERED: HYDROmorphone 0.5 mg/0.5 ml ISec ONE (17:23)
[2018-03-09] MEDS: Dextrose 5%/0.9% NS 1,000 ML IV SCH (18:41)
[2018-03-10] MEDS: Meropenem IV 1 gm in NS 1 GM/50 ML BAG IVPB SCH ×2 (00:20→05:20)
[2018-03-10] MEDS: HYDROmorphone 1 mg/ml ISec IVP PRN ×6 (01:03→20:42)
--- NOTE | 2018-03-10 03:54 | OP ---
PROCEDURE DATE: 03/09/2018 SURGEON: Vishnu Nicholas DO CHR[facility] TANNING [employer]UM OPERATOR: Matt Olivo DO and Anibal Pierre DO TYPE OF ANESTHESIA: General endotracheal. PREOPERATIVE DIAGNOSIS: Painful cervical lymphadenopathy. POSTOPERATIVE DIAGNOSIS: Painful cervical lymphadenopathy. OPERATION PERFORMED: Incisional biopsy of deep cervical lymph nodes. SPECIMENS REMOVED: 1. Fresh deep cervical lymph node. 2. Deep cervical lymph node in formalin. ESTIMATED BLOOD LOSS: Less than 5 mL. INDICATIONS: This is a 28-year-old female that initially presented to [facility] with complaints of left-sided neck tenderness. The patient initially noticed it 2 weeks ago. The patient was initially tried on antibiotics and was refractory and did not improve. Decision was made by the patient and ENT attending to go ahead and perform a biopsy of this mass. Risks and benefits were discussed in detailed. Specifically noting that the location of mass, the marginal mandibular branch is a rare location and all the risks were described in detail including possibility of paralysis to the lip including facial droop. DESCRIPTION OF PROCEDURE: The patient was taken to the operating room. The patient was placed in supine position and general endotracheal anesthesia was induced. Preoperative antibiotics were given. The borders of the mandible were marked and location of the incision were marked, The patient was then prepped and draped in the usual sterile fashion. A timeout was completed verifying correct patient, procedure, site and positioning. A 6 cm incision was made inferior to the mandible by about 2 cm using electrocautery and blunt dissection to get to the layer of the platysma. The platysma was sharply incised with Metzenbaum. Careful note was taken to avoid the marginal mandibular branch nerve. Lymph node was identified and dissected out. Lymph node was found to be very easily friable. Incisional biopsy was performed and was taken both as fresh specimen and specimen in formalin. Once again, careful note was taken of the marginal mandibular branch. Hemostasis was appropriately achieved. The incision was then closed with 3-0 Vicryl in interrupted fashion and then closed with 4-0 Monocryl in a running subcuticular manner. The patient tolerated the procedure well and was taken to postanesthesia care unit in stable condition. All counts were correct at the end of the procedure. Dr. Nicholas was present for the entirety of the case. Anibal Pierre DO Vishnu Nicholas DO [facility] # [id number]
[2018-03-10 08:34] LABS: HEMOGLOBIN 11.8 g/dL (12.0-16.0); MEAN CELL VOLUME 81.7 fl (80.0-105.0); MEAN CORPUSCULAR HEMOGLOBIN 27.3 pg (25.0-35.0); MEAN CORPUSCULAR HGB CONC 33.4 g/dl (31.0-37.0); MEAN PLATELET VOLUME 10.8 fl (7.0-11.0); RBC 4.32 10^6/uL (3.5-6.1); RED CELL DISTRIBUTION WIDTH 12.6 % (11.5-14.5); WHITE BLOOD COUNT 5.9 10^3/uL (4.5-11.0)
[2018-03-10 09:36] LABS: ALBUMIN 4.2 g/dL (3.0-4.8); ALT/SGPT 113 U/L (7-56); AST/SGOT 113 U/L (14-36); BLOOD UREA NITROGEN 6 mg/dL (7-21); CALCIUM 8.5 mg/dL (8.4-10.5); GFR NON-AFRICAN AMERICAN > 60
[2018-03-10] MEDS: Insulin Reg-MEDIUM-Coverage SC SCH ×4 (09:39→22:42)
--- NOTE | 2018-03-10 11:39 | CP.PCM.PN ---
<QuinTyler - Last Filed: 03/10/18 11:36> Subjective - Date & Time of Evaluation Date of Evaluation: 03/10/18 Time of Evaluation: 11:37 - Subjective Subjective: Patient has post-operative pain requiring opiate meds. She has not had BM in 1 week. She is still have nausea, requesting her diet to be decreased. Objective - Vital Signs/Intake and Output Vital Signs (last 24 hours): Temp Pulse Resp BP Pulse Ox 100 F H 98 H 20 124/85 100 03/10/18 06:00 03/10/18 06:00 03/10/18 06:00 03/10/18 06:00 03/10/18 06:00 Intake and Output: 03/10/18 03/10/18 06:59 18:59 Intake Total 2400 Balance 2400 - Medications Medications: Current Medications Acetaminophen (Tylenol 325mg Tab) 650 mg PO Q4H PRN PRN Reason: Fever >100.4 F Last Admin: 03/09/18 21:44 Dose: 650 mg Docusate Sodium (Colace) 100 mg PO DAILY [facility] Last Admin: 03/10/18 09:45 Dose: 100 mg Hydromorphone HCl (Dilaudid) 1 mg IVP Q3 PRN PRN Reason: Pain, moderate (4-7) Last Admin: 03/10/18 08:15 Dose: 1 mg Dextrose/Sodium Chloride (Dextrose 5%/0.9% Ns 1000 Ml) 1,000 mls @ 100 mls/hr IV .Q10H [facility] Last Admin: 03/09/18 18:41 Dose: 100 mls/hr Vancomycin HCl (Vancomycin 1gm) 1 gm in 250 mls @ 167 mls/hr IVPB Q12H [facility]; Protocol Stop: 03/18/18 11:31 Insulin Human Regular (Humulin R Med) 0 units SC ACHS [facility]; Protocol Last Admin: 03/10/18 09:39 Dose: Not Given Ketorolac Tromethamine (Toradol) 30 mg IVP Q6H PRN PRN Reason: Pain, moderate (4-7) Last Admin: 03/09/18 12:08 Dose: 30 mg Ondansetron HCl (Zofran Inj) 4 mg IVP Q6H PRN PRN Reason: Nausea/Vomiting Last Admin: 03/10/18 08:08 Dose: 4 mg Ondansetron HCl (Zofran Inj) 4 mg IVP ONCE PRN PRN Reason: Nausea/Vomiting - Labs Labs: 03/10/18 07:30 03/10/18 07:30 PT 13.7 SECONDS (9.4-12.5) H 03/08/18 16:35 INR 1.20 03/08/18 16:35 APTT 25.6 Seconds (25.1-36.5) 03/08/18 16:35 - Constitutional Appears: Non-toxic, No Acute Distress - Head Exam Head Exam: ATRAUMATIC, NORMAL INSPECTION - Eye Exam Eye Exam: EOMI, Normal appearance - ENT Exam ENT Exam: Mucous Membranes Moist, Normal Exam - Neck Exam Neck Exam: absent: Normal Inspection - Respiratory Exam Respiratory Exam: Clear to Ausculation Bilateral, NORMAL BREATHING PATTERN - Cardiovascular Exam Cardiovascular Exam: REGULAR RHYTHM, +S1, +S2 - GI/Abdominal Exam GI & Abdominal Exam: Soft, Normal Bowel Sounds. absent: Tenderness - Extremities Exam Extremities Exam: Full ROM, Normal Inspection - Neurological Exam Neurological Exam: Alert, Awake, Oriented x3 - Psychiatric Exam Psychiatric exam: Depressed, Normal Affect - Skin Skin Exam: Dry, Normal Color Assessment and Plan - Assessment and Plan (Free Text) Assessment: #Tender neck mass, Left #Morbid obesity #Fatty liver #Elevated liver tests #Nausea/vomiting PLAN: -Elevated liver tests likely related to obesity, possible previous abx use or viral infection or sytemic illness. -U/S abdomen shows no focal hepatic disease. Liver is fatty. No splenomegaly. -Labs pending for possible viral etiology (EBV/CMV) etc. -Continue zofran PRN, IVF. Nausea/vomiting likely secondary to opiate use. Consider NSAIDs/tylenol as a replacement. -full liquid diet -miralax -Neck biopsy results pending <Josef De La Garza - Last Filed: 03/10/18 21:37> Objective - Vital Signs/Intake and Output Vital Signs (last 24 hours): Temp Pulse Resp BP Pulse Ox 100.2 F H 98 H 20 124/85 100 03/10/18 20:42 03/10/18 06:00 03/10/18 06:00 03/10/18 06:00 03/10/18 06:00 - Medications Medications: Current Medications Acetaminophen (Tylenol 325mg Tab) 650 mg PO Q4H PRN PRN Reason: Fever >100.4 F Last Admin: 03/10/18 20:42 Dose: 650 mg Docusate Sodium (Colace) 100 mg PO DAILY [facility] Last Admin: 03/10/18 09:45 Dose: 100 mg Hydromorphone HCl (Dilaudid) 1 mg IVP Q3 PRN PRN Reason: Pain, moderate (4-7) Last Admin: 03/10/18 20:42 Dose: 1 mg Dextrose/Sodium Chloride (Dextrose 5%/0.9% Ns 1000 Ml) 1,000 mls @ 100 mls/hr IV .Q10H [facility] Last Admin: 03/10/18 13:41 Dose: 100 mls/hr Vancomycin HCl (Vancomycin 1gm) 1 gm in 250 mls @ 167 mls/hr IVPB Q12H [facility]; Protocol Stop: 03/18/18 11:31 Last Admin: 03/10/18 13:41 Dose: 167 mls/hr Insulin Human Regular (Humulin R Med) 0 units SC [facility]; Protocol Last Admin: 03/10/18 16:46 Dose: Not Given Ketorolac Tromethamine (Toradol) 30 mg IVP Q6H PRN PRN Reason: Pain, moderate (4-7) Last Admin: 03/10/18 11:43 Dose: 30 mg Ondansetron HCl (Zofran Inj) 4 mg IVP Q6H PRN PRN Reason: Nausea/Vomiting Last Admin: 03/10/18 13:41 Dose: 4 mg Ondansetron HCl (Zofran Inj) 4 mg IVP ONCE PRN PRN Reason: Nausea/Vomiting Polyethylene Glycol (Miralax) 17 gm PO BID [facility] Last Admin: 03/10/18 17:43 Dose: 17 gm - Labs Labs: 03/10/18 07:30 03/10/18 07:30 PT 13.7 SECONDS (9.4-12.5) H 03/08/18 16:35 INR 1.20 03/08/18 16:35 APTT 25.6 Seconds (25.1-36.5) 03/08/18 16:35 Attending/Attestation - Attestation I have personally seen and examined this patient.: Yes I have fully participated in the care of the patient.: Yes I have reviewed all pertinent clinical information, including history, physical exam and plan: Yes Notes (Text): 03/10/18 21:36 Chart reviewed. Findings, assessment and management, as reflected above, were discussed with Dr. Tsai.
--- NOTE | 2018-03-10 13:10 | RAD ---
Date of service: 03/10/2018 HISTORY: fever COMPARISON: Chest radiograph dated 03/09/2018. TECHNIQUE: Chest PA and lateral FINDINGS: LUNGS: No active pulmonary disease. PLEURA: No significant pleural effusion identified. No pneumothorax apparent. CARDIOVASCULAR: No aortic atherosclerotic calcification present. Normal cardiac size. No pulmonary vascular congestion. OSSEOUS STRUCTURES: No significant abnormalities. VISUALIZED UPPER ABDOMEN: Normal. OTHER FINDINGS: None. IMPRESSION: No active disease.
[2018-03-10] MEDS: Vancomycin 1gm in NS 250ml 1 GM/250 ML BAG IVPB SCH ×2 (13:41→22:42)
[2018-03-10] MEDS: POLYETHYLENE GLYCOL 3350 17 GM/Dose PACKET PO SCH ×2 (13:41→17:43)
[2018-03-10] MEDS: Dextrose 5%/0.9% NS 1,000 ML IV SCH (13:41)
[2018-03-10] MEDS ORDERED: Bisacodyl 5mg EC Tab PO ONE (13:45)
[2018-03-10 15:57] LABS: URINE APPEARANCE SL CLOUDY (CLEAR); URINE BILIRUBIN NEGATIVE (NEGATIVE); URINE BLOOD TRACE-INTACT (NEGATIVE); URINE COLOR YELLOW (YELLOW); URINE GLUCOSE (UA) NEGATIVE (NEGATIVE); URINE LEUKOCYTE ESTERASE NEGATIVE Leu/uL (NEGATIVE); URINE PROTEIN NEGATIVE mg/dL (<30 mg/dL)
[2018-03-10 16:02] LABS: URINE RBC 0 - 2 /hpf (0-2); URINE WBC NEGATIVE /hpf (0-6)
--- NOTE | 2018-03-10 16:21 | PN ---
DATE: 03/10/2018 SUBJECTIVE: The patient is in bed, in no acute distress. The patient with low grade fevers of 100 this morning, T-max yesterday was 100.3, heart rate of 101. PHYSICAL EXAMINATION: VITAL SIGNS: Respiratory rate is 18, heart rate of 98. HEENT: Unchanged. NECK: Supple. LUNGS: Have decreased breath sounds. HEART: Normal S1 and S2. ABDOMEN: Soft. LABORATORY EXAMINATION: Reveals white count is 5.9 and sed rate is 44. Chemistries are noted. LFTs are elevated. AST is 113, which is actually an increase and ALT is 113, also an increase, and immunology is noted and pending. The patient's mycoplasma and HIV is negative. Hepatitis profile is negative and RPR is negative and FTA is negative. Microbiology reveals the blood cultures are negative. The pathology report is pending. Review of orders reveals the patient to be on meropenem. Dr. Anibal Pierre's note is reviewed. Operative note is reviewed. ASSESSMENT AND PLAN: A 28-year-old with chronic submental lymphadenopathy. Etiology is not clear in a patient with morbid obesity, body mass index of 42, history of group A Streptococcus pharyngitis, diabetes mellitus, now with liver function test elevations. We will discontinue meropenem, may can be contributing to the liver function test elevations and she did have a fever of 100.3. We will repeat pancultures, discontinue meropenem and will hold off on antibiotics at this time. We will order blood cultures, urine cultures and procalcitonin, order a chest x-ray, order a methicillin-resistant Staphylococcus aureus screen, and since the patient has fever on meropenem, we will give one dose of vancomycin for now pending repeat panculture results. We will make further recommendations. Pending repeat pancultures and should follow the LFTs. We will order chemistries for morning. Ricardo Reed MD
--- NOTE | 2018-03-10 19:39 | PN ---
DATE: 03/10/2018 SUBJECTIVE: She just got back from an ultrasound of the lower extremities. She is also wanting to shower. She is not feeling well. The pain meds are helping, every 3 hours makes a difference for her. She had a biopsy of the jaw yesterday. She cannot swallow whole food, but she is taking the Glucerna. She is on vancomycin, Zofran, Tylenol, Toradol, MiraLax and Dulcolax suppository. She has not gone to the bathroom in 6 days. She is on Dilaudid one every 3 hours IV, IV fluids and Colace. She is only on vancomycin right now as far as antibiotics. PHYSICAL EXAMINATION GENERAL: She is alert, uncomfortable. She looks very washed out. She looks very painful and lethargic. VITAL SIGNS: Temperature was 100.3, now it is 99.2 with Tylenol; pulse is 98, 124/85 blood pressure, 20 respiratory rate, 100% O2 sat on 2 L. HEENT: Head is atraumatic. Very swollen on the left side of the face. She has had a biopsy yesterday; hope that tells us what is going on. HEART: Regular rate. LUNGS: Decreased breath sounds. ABDOMEN: Soft, obese. EXTREMITIES: No edema. LABORATORY DATA: She has 5.9 white count, 11.8 hemoglobin, 35.3 hematocrit and 147 platelets. INR is 1.2. She has 136 sodium, potassium 3.9, BUN 6, creatinine 0.7, GFR is greater than 60, sugar is 141, calcium is 8.5, total bili is 0.5, AST is 113, ALT is 113, alk phos is 80, total protein is 8.1. All the immunizations are pending. RPR is nonreactive. T. pallidum is nonreactive. EBV is pending. Hepatitis A is nonreactive, hepatitis B negative, B core negative, C is negative. HIV is nonreactive. Mycoplasma pneumoniae is negative. ASSESSMENT AND PLAN: She is being seen by multiple physicians; Infectious Disease; Ear, Nose and Throat. She had biopsy of the lymph nodes. She had a chest x-ray which showed no active disease. She is on Merrem. Lymph nodes, hopefully she will find something out with the biopsy reports, it is very important check her labs tomorrow. Give Dulcolax suppository, pain medications, and hopefully we will find the answer. Vance Saucedo DO MTDHumaira
[2018-03-11] MEDS: HYDROmorphone 1 mg/ml ISec IVP PRN ×4 (00:23→17:47)
[2018-03-11] MEDS: Dextrose 5%/0.9% NS 1,000 ML IV SCH ×2 (05:30→17:47)
[2018-03-11 07:32] LABS: ALT/SGPT 109 U/L (7-56); AST/SGOT 111 U/L (14-36); BLOOD UREA NITROGEN 6 mg/dL (7-21); CALCIUM 8.8 mg/dL (8.4-10.5); GFR NON-AFRICAN AMERICAN > 60
--- NOTE | 2018-03-11 09:13 | US ---
HISTORY: Leg pain and swelling. Evaluate for DVT PHYSICIAN(S): Gregorio Quiroz MD. TECHNIQUE: Duplex sonography and color-flow Doppler with graded compression were used to evaluate the deep venous systems of both lower extremities. FINDINGS: The visualized deep venous systems of both lower extremities are sonographically normal and compressible. Normal wave forms and augmentation are seen. There is no sonographic evidence for deep venous thrombosis in the visualized segments of both lower extremities. IMPRESSION: No sonographic evidence for deep venous thrombosis in the visualized segments of both lower extremities.
[2018-03-11] MEDS: POLYETHYLENE GLYCOL 3350 17 GM/Dose PACKET PO SCH ×2 (10:42→17:48)
--- NOTE | 2018-03-11 11:42 | PN ---
DATE: 03/11/2018 SUBJECTIVE: She is sleeping fairly well this morning in bed. She is still quite miserable. The left side of the face is still quite swollen, maybe even worse than yesterday. She is uncomfortable. She is status post biopsy of ear, nose and throat. She is on IV antibiotics by Infectious Disease and she is still nauseous and cannot swallow and on Glucerna by GI. She is on Colace, dextrose, Dilaudid, insulin coverage, Toradol, Tylenol, vancomycin IV, and Zofran. PHYSICAL EXAMINATION: VITAL SIGNS: She has a 98 temperature, it was 100.2 last night, 98 this morning; 100 pulse; 112/80 blood pressure; 20 respiratory rate; and 96% O2 sat on room air. HEENT: Head is atraumatic and normocephalic. Not really normal, the whole left side of the face is completely swollen, left jaw is swollen, it is into the neck a little bit. The throat, she can swallow saliva and liquid, but it is still sore. HEART: Regular rate. LUNGS: Decreased breath sounds, but clear. ABDOMEN: Soft and obese. EXTREMITIES: No edema. LABORATORY DATA: She has a 140 sodium, potassium 3.5, I am going to give her some potassium, BUN 6, creatinine 0.7, GFR is greater than 60, sugar is 117, calcium is 8.8, total bili is 0.4, AST is 111, ALT is 109, alk phos is 80, and total protein 7.7. All her serologies are negative. RPR, T. pallidum, EBV is pending. Hepatitis is all negative. HIV is negative. Mycoplasma is negative. All the PIPER patterns are pending. White count is 5.9, hemoglobin 11.8, hematocrit 35.3, and platelets are 147. ASSESSMENT AND PLAN: Awaiting for the biopsy report to come back. She is still on IV fluids and IV antibiotics. We are checking her labs tomorrow. I am going to replace her potassium today and hopefully we will find an answer. She has got a left jaw . Vance Saucedo DO [facility] # [id number] MTDHumaira
--- NOTE | 2018-03-11 12:58 | CP.PCM.PN ---
<Naga Wolfe - Last Filed: 03/11/18 15:35> Subjective - Date & Time of Evaluation Date of Evaluation: 03/11/18 Time of Evaluation: 11:00 - Subjective Subjective: PGY-4 GI Fellow Prog Note Pt lying in bed when seen this AM. States she is doing OK, tolerating liquid diet and would not like it advanced yet. No BM yet. 5 point ROS negative other than stated above Objective - Vital Signs/Intake and Output Vital Signs (last 24 hours): Temp Pulse Resp BP Pulse Ox 98 F 100 H 20 112/80 96 03/11/18 07:00 03/11/18 07:00 03/11/18 07:00 03/11/18 07:00 03/11/18 07:00 Intake and Output: 03/11/18 03/11/18 06:59 18:59 Intake Total 2640 Balance 2640 - Medications Medications: Current Medications Acetaminophen (Tylenol 325mg Tab) 650 mg PO Q4H PRN PRN Reason: Fever >100.4 F Last Admin: 03/10/18 20:42 Dose: 650 mg Docusate Sodium (Colace) 100 mg PO DAILY [facility] Last Admin: 03/10/18 09:45 Dose: 100 mg Hydromorphone HCl (Dilaudid) 1 mg IVP Q3 PRN PRN Reason: Pain, moderate (4-7) Last Admin: 03/11/18 06:32 Dose: 1 mg Dextrose/Sodium Chloride (Dextrose 5%/0.9% Ns 1000 Ml) 1,000 mls @ 100 mls/hr IV .Q10H [facility] Last Admin: 03/11/18 05:30 Dose: 100 mls/hr Vancomycin HCl (Vancomycin 1gm) 1 gm in 250 mls @ 167 mls/hr IVPB Q12H [facility]; Protocol Stop: 03/18/18 11:31 Last Admin: 03/10/18 22:42 Dose: 167 mls/hr Insulin Human Regular (Humulin R Med) 0 units SC ACHS [facility]; Protocol Last Admin: 03/10/18 22:42 Dose: Not Given Ketorolac Tromethamine (Toradol) 30 mg IVP Q6H PRN PRN Reason: Pain, moderate (4-7) Last Admin: 03/10/18 11:43 Dose: 30 mg Ondansetron HCl (Zofran Inj) 4 mg IVP Q6H PRN PRN Reason: Nausea/Vomiting Last Admin: 03/10/18 13:41 Dose: 4 mg Ondansetron HCl (Zofran Inj) 4 mg IVP ONCE PRN PRN Reason: Nausea/Vomiting Polyethylene Glycol (Miralax) 17 gm PO BID [facility] Last Admin: 03/10/18 17:43 Dose: 17 gm - Labs Labs: 03/10/18 07:30 03/11/18 06:50 PT 13.7 SECONDS (9.4-12.5) H 03/08/18 16:35 INR 1.20 03/08/18 16:35 APTT 25.6 Seconds (25.1-36.5) 03/08/18 16:35 - Constitutional Appears: Well, No Acute Distress - Head Exam Head Exam: ATRAUMATIC, NORMAL INSPECTION - Neck Exam Additional comments: Left side of neck with dressing in place - Respiratory Exam Respiratory Exam: NORMAL BREATHING PATTERN. absent: Accessory Muscle Use, Respiratory Distress - GI/Abdominal Exam GI & Abdominal Exam: Soft, Normal Bowel Sounds. absent: Bruit, Distended, Firm, Guarding, Rigid, Tenderness, Mass, Organomegaly, Pulsatile Mass Assessment and Plan - Assessment and Plan (Free Text) Assessment: #Tender neck mass, Left #Morbid obesity #Fatty liver #Elevated liver tests #Nausea/vomiting Plan: -Elevated liver tests likely related to obesity, possible previous abx use or viral infection or systemic illness. -U/S abdomen shows no focal hepatic disease. Liver is fatty. No splenomegaly. -Labs pending for possible viral etiology (EBV/CMV), PIPER etc. -Continue zofran PRN, IVF. Nausea/vomiting likely secondary to opiate use. Consider NSAIDs/tylenol as a replacement. -Full liquid diet, adv to soft, bland tonight -Miralax -Neck biopsy results pending Pt seen and examined with Dr. Patel; please see attestation for further recs/changes. <Cuco Patel - Last Filed: 03/11/18 15:39> Objective - Vital Signs/Intake and Output Vital Signs (last 24 hours): Temp Pulse Resp BP Pulse Ox 98 F 100 H 20 112/80 96 03/11/18 07:00 03/11/18 07:00 03/11/18 07:00 03/11/18 07:00 03/11/18 07:00 Intake and Output: 03/11/18 03/11/18 06:59 18:59 Intake Total 2640 Balance 2640 - Medications Medications: Current Medications Acetaminophen (Tylenol 325mg Tab) 650 mg PO Q4H PRN PRN Reason: Fever >100.4 F Last Admin: 03/10/18 20:42 Dose: 650 mg Docusate Sodium (Colace) 100 mg PO DAILY [facility] Last Admin: 03/10/18 09:45 Dose: 100 mg Hydromorphone HCl (Dilaudid) 1 mg IVP Q3 PRN PRN Reason: Pain, moderate (4-7) Last Admin: 03/11/18 14:12 Dose: 1 mg Dextrose/Sodium Chloride (Dextrose 5%/0.9% Ns 1000 Ml) 1,000 mls @ 100 mls/hr IV .Q10H [facility] Last Admin: 03/11/18 05:30 Dose: 100 mls/hr Vancomycin HCl (Vancomycin 1gm) 1 gm in 250 mls @ 167 mls/hr IVPB Q12H [facility]; Protocol Stop: 03/18/18 11:31 Last Admin: 03/10/18 22:42 Dose: 167 mls/hr Insulin Human Regular (Humulin R Med) 0 units SC ACHS [facility]; Protocol Last Admin: 03/10/18 22:42 Dose: Not Given Ketorolac Tromethamine (Toradol) 30 mg IVP Q6H PRN PRN Reason: Pain, moderate (4-7) Last Admin: 03/10/18 11:43 Dose: 30 mg Ondansetron HCl (Zofran Inj) 4 mg IVP Q6H PRN PRN Reason: Nausea/Vomiting Last Admin: 03/10/18 13:41 Dose: 4 mg Ondansetron HCl (Zofran Inj) 4 mg IVP ONCE PRN PRN Reason: Nausea/Vomiting Polyethylene Glycol (Miralax) 17 gm PO BID [facility] Last Admin: 03/10/18 17:43 Dose: 17 gm - Labs Labs: 03/10/18 07:30 03/11/18 06:50 PT 13.7 SECONDS (9.4-12.5) H 03/08/18 16:35 INR 1.20 12/30/18 16:35 APTT 25.6 Seconds (25.1-36.5) 03/08/18 16:35 Attending/Attestation - Attestation I have personally seen and examined this patient.: Yes I have fully participated in the care of the patient.: Yes I have reviewed all pertinent clinical information, including history, physical exam and plan: Yes Notes (Text): 03/11/18 15:37 I have seen and examined patient with GI fellow. No acute events overnight, she is seen resting in bed comfortably. She continues to endorse mild elizabet-umbilica l discomfort and nausea but denies vomiting. She is tolerating PO liquids without difficulty. L neck mass s/p biopsy Obesity Transaminitis - Advance diet slowly as tolerated - Antibiotic therapy as per ID - Maintain bowel regimen to prevent constipation - Continue to monitor LFTs - Anti-emetic therapy PRN - Will continue to monitor patient clinical course
[2018-03-11] MEDS: Insulin Reg-MEDIUM-Coverage SC SCH ×2 (17:41→22:00)
[2018-03-11] MEDS: Vancomycin 1gm in NS 250ml 1 GM/250 ML BAG IVPB SCH (17:43)
--- NOTE | 2018-03-11 21:21 | PN ---
DATE: 03/11/2018 SUBJECTIVE: The patient is in bed, in no acute distress, nontoxic. PHYSICAL EXAMINATION: VITAL SIGNS: Temperature is 98, blood pressure is 120/70, respiratory rate 18. HEENT: Unremarkable. NECK: Supple. LUNGS: Have decreased breath sounds. HEART: Normal S1 and S2. ABDOMEN: Soft. LABORATORY EXAMINATION: Noted. ASSESSMENT AND PLAN: This is a 28-year-old female with a chronic submental lymphadenopathy, etiology is not clear and with morbid obesity, body mass index of 42, with a history of group A streptococcal pharyngitis, diabetic, and liver function test elevations. Currently, review of orders reveals the pathology is pending. The patient is on vancomycin. Microbiology is negative, and the liver function tests are improving. The patient has been afebrile. We will also discontinue the vancomycin. Awaiting for pathology. Ricardo Reed MD
[2018-03-12] MEDS: Insulin Reg-MEDIUM-Coverage SC SCH ×3 (07:30→16:39)
[2018-03-12 07:37] LABS: HEMOGLOBIN 11.1 g/dL (12.0-16.0); MEAN CELL VOLUME 81.4 fl (80.0-105.0); MEAN CORPUSCULAR HEMOGLOBIN 26.4 pg (25.0-35.0); MEAN CORPUSCULAR HGB CONC 32.5 g/dl (31.0-37.0); MEAN PLATELET VOLUME 10.7 fl (7.0-11.0); RBC 4.2 10^6/uL (3.5-6.1); RED CELL DISTRIBUTION WIDTH 12.7 % (11.5-14.5); WHITE BLOOD COUNT 4.2 10^3/uL (4.5-11.0)
[2018-03-12 08:08] LABS: ALB/GLOB RATIO 1.1 (1.1-1.8); ALBUMIN 4.1 g/dL (3.0-4.8); ALT/SGPT 149 U/L (7-56); AST/SGOT 149 U/L (14-36); BLOOD UREA NITROGEN 5 mg/dL (7-21); CALCIUM 8.9 mg/dL (8.4-10.5); GFR NON-AFRICAN AMERICAN > 60
[2018-03-12] MEDS ORDERED: Magnesium Citrate Oral SOL (300 ml) PO ONE (08:42)
--- NOTE | 2018-03-12 08:56 | CP.PCM.PN ---
<Naga Wolfe - Last Filed: 03/12/18 08:52> Subjective - Date & Time of Evaluation Date of Evaluation: 03/12/18 Time of Evaluation: 07:50 - Subjective Subjective: PGY-4 GI Fellow Prog Note Pt lying in bed when seen this AM. States she is doing OK, tolerated soft diet last night. Still no BM, but she reports flatus. 5 point ROS negative other than stated above Objective - Vital Signs/Intake and Output Vital Signs (last 24 hours): Temp Pulse Resp BP Pulse Ox 99.2 F 106 H 19 122/87 100 03/12/18 08:05 03/12/18 08:05 03/12/18 08:05 03/12/18 08:05 03/12/18 08:05 Intake and Output: 03/12/18 03/12/18 06:59 18:59 Intake Total 2940 Balance 2940 - Medications Medications: Current Medications Acetaminophen (Tylenol 325mg Tab) 650 mg PO Q4H PRN PRN Reason: Fever >100.4 F Last Admin: 03/10/18 20:42 Dose: 650 mg Docusate Sodium (Colace) 100 mg PO DAILY [facility] Last Admin: 03/11/18 17:42 Dose: 100 mg Hydromorphone HCl (Dilaudid) 1 mg IVP Q3 PRN PRN Reason: Pain, moderate (4-7) Last Admin: 03/11/18 17:47 Dose: 1 mg Dextrose/Sodium Chloride (Dextrose 5%/0.9% Ns 1000 Ml) 1,000 mls @ 100 mls/hr IV .Q10H [facility] Last Admin: 03/11/18 17:47 Dose: 100 mls/hr Insulin Human Regular (Humulin R Med) 0 units SC [facility]; Protocol Last Admin: 03/11/18 22:00 Dose: Not Given Ketorolac Tromethamine (Toradol) 30 mg IVP Q6H PRN PRN Reason: Pain, moderate (4-7) Last Admin: 03/12/18 04:45 Dose: 30 mg Ondansetron HCl (Zofran Inj) 4 mg IVP Q6H PRN PRN Reason: Nausea/Vomiting Last Admin: 03/10/18 13:41 Dose: 4 mg Ondansetron HCl (Zofran Inj) 4 mg IVP ONCE PRN PRN Reason: Nausea/Vomiting Polyethylene Glycol (Miralax) 17 gm PO BID [facility] Last Admin: 03/11/18 17:48 Dose: 17 gm - Labs Labs: 03/12/18 07:20 03/12/18 07:20 PT 13.7 SECONDS (9.4-12.5) H 03/08/18 16:35 INR 1.20 03/08/18 16:35 APTT 25.6 Seconds (25.1-36.5) 03/08/18 16:35 - Constitutional Appears: Well, No Acute Distress - Head Exam Head Exam: ATRAUMATIC, NORMAL INSPECTION - ENT Exam ENT Exam: Mucous Membranes Moist Additional comments: L neck dressing in place - Respiratory Exam Respiratory Exam: NORMAL BREATHING PATTERN. absent: Accessory Muscle Use, Respiratory Distress - GI/Abdominal Exam GI & Abdominal Exam: Soft, Normal Bowel Sounds. absent: Bruit, Distended, Firm, Guarding, Rigid, Tenderness, Mass, Organomegaly, Pulsatile Mass, Rebound Assessment and Plan - Assessment and Plan (Free Text) Assessment: #Tender neck mass, Left #Morbid obesity #Fatty liver #Elevated liver tests #Nausea/vomiting Plan: -Elevated liver tests likely related to obesity, possible previous abx use or viral infection or systemic illness. EBV related with elevated IgG? -PIPER negative, CMV pending -U/S abdomen shows no focal hepatic disease. Liver is fatty. No splenomegaly. -Continue zofran PRN, IVF. Nausea/vomiting likely secondary to opiate use. -FCont soft diet -Miralax, 1x Mag Citrate today -Neck biopsy results pending Pt discussed with Dr. Patel; please see attestation for further recs/changes. <Cuco Patel - Last Filed: 03/12/18 10:51> Objective - Vital Signs/Intake and Output Vital Signs (last 24 hours): Temp Pulse Resp BP Pulse Ox 99.2 F 106 H 19 122/87 100 03/12/18 08:05 03/12/18 08:05 03/12/18 08:05 03/12/18 08:05 03/12/18 08:05 Intake and Output: 03/12/18 03/12/18 06:59 18:59 Intake Total 2940 Balance 2940 - Medications Medications: Current Medications Acetaminophen (Tylenol 325mg Tab) 650 mg PO Q4H PRN PRN Reason: Fever >100.4 F Last Admin: 03/10/18 20:42 Dose: 650 mg Docusate Sodium (Colace) 100 mg PO DAILY [facility] Last Admin: 03/12/18 10:12 Dose: 100 mg Hydromorphone HCl (Dilaudid) 1 mg IVP Q3 PRN PRN Reason: Pain, moderate (4-7) Last Admin: 03/11/18 17:47 Dose: 1 mg Dextrose/Sodium Chloride (Dextrose 5%/0.9% Ns 1000 Ml) 1,000 mls @ 100 mls/hr IV .Q10H [facility] Last Admin: 03/11/18 17:47 Dose: 100 mls/hr Insulin Human Regular (Humulin R Med) 0 units SC [facility]; Protocol Last Admin: 03/12/18 07:30 Dose: Not Given Ketorolac Tromethamine (Toradol) 30 mg IVP Q6H PRN PRN Reason: Pain, moderate (4-7) Last Admin: 03/12/18 04:45 Dose: 30 mg Ondansetron HCl (Zofran Inj) 4 mg IVP Q6H PRN PRN Reason: Nausea/Vomiting Last Admin: 03/10/18 13:41 Dose: 4 mg Ondansetron HCl (Zofran Inj) 4 mg IVP ONCE PRN PRN Reason: Nausea/Vomiting Polyethylene Glycol (Miralax) 17 gm PO BID [facility] Last Admin: 03/12/18 10:12 Dose: 17 gm - Labs Labs: 03/12/18 07:20 03/12/18 07:20 PT 13.7 SECONDS (9.4-12.5) H 03/08/18 16:35 INR 1.20 03/08/18 16:35 APTT 25.6 Seconds (25.1-36.5) 03/08/18 16:35 Attending/Attestation - Attestation I have fully participated in the care of the patient.: Yes I have reviewed all pertinent clinical information, including history, physical exam and plan: Yes Notes (Text): 03/12/18 10:49 L neck mass s/p biopsy Obesity Transaminitis Nausea, vomiting - resolved Constipation - Diet as tolerated - Maintain bowel regimen to aid in constipation, may add magnesium citrate - LFTs remain elevated, possibly related to antibiotic therapy vs EBV, continue to monitor - Will continue to monitor patient clinical course
[2018-03-12] MEDS: POLYETHYLENE GLYCOL 3350 17 GM/Dose PACKET PO SCH ×3 (10:12→18:17)
--- NOTE | 2018-03-12 15:01 | PN ---
DATE: 03/12/2018 SUBJECTIVE: She is resting comfortably in bed. This is actually the first day I saw her face, not so swollen. The left jaw is still bandaged with the biopsy. She still cannot swallow anything, but liquids due to the swelling. She is on magnesium, Colace, dextrose, Dilaudid, MiraLax, potassium replacement, Toradol, Tylenol, and Zofran. PHYSICAL EXAMINATION: VITAL SIGNS: She has 99.2 temperature, was 100.2 the other day; 106 pulse; 122/87 blood pressure; 19 respiratory rate 100% O2 sat on room air. HEENT: Head is atraumatic, but very swollen on the left side of her jaw, but less than it was a couple of days ago. She still cannot open her mouth well, but she can swallow liquids and cannot swallow food. NECK: Swollen, submandibular adenopathy on the left. HEART: Regular rate with decreased breath sounds. ABDOMEN: Soft, morbidly obese. EXTREMITIES: Trace edema if any. LABORATORY DATA: She has 139 sodium, potassium 3.8, BUN is five, creatinine sugar is 125, calcium is 8.9, total bili is 0.5. AST is 149, ALT is 1.9, alk phos is 81, total protein 7.9. White count 4.2, hemoglobin 11.1, hematocrit 34.2, platelets 175. We are waiting for the biopsy to come back of the left jaw mass. She is being seen by Infectious Disease, ENT, and GI. She is still weak, cannot swallow well, left jaw mass, hopefully the pathology will come back today. Vance Saucedo DO MTDD
[2018-03-12] MEDS: Dextrose 5%/0.9% NS 1,000 ML IV SCH (16:38)
--- NOTE | 2018-03-13 00:36 | PN ---
DATE: 03/12/2018 SUBJECTIVE: The patient is seen in bed, in no acute distress, nontoxic. PHYSICAL EXAMINATION: VITAL SIGNS: Temperature is 98, blood pressure is 130/90, respiratory rate of 18, heart rate of 97. HEENT: Unchanged. NECK: Supple. LUNGS: Decreased breath sounds. HEART: Normal S1 and S2. ABDOMEN: Soft, nontender. LABORATORY DATA: Chemistries are noted. White count is noted. Laboratories are noted. LFTs are elevated. Microbiology reveals the cultures are negative. The pathology report is still pending. ASSESSMENT AND PLAN: This is a 28-year-old female with morbid obesity with a body mass index of 42, history of group A Streptococcal pharyngitis who was admitted with chronic submental lymphadenopathy, status post biopsy. Currently off of antibiotics with elevated liver function tests. Awaiting for pathology. Awaiting for Bartonella, cytomegalovirus, human immunodeficiency virus in the pathology report. Currently off of antibiotics, afebrile, normal white count. Hepatitis profile is negative. Cytomegalovirus is pending. Monospot is negative Alireza-Mays. IgG is positive. Antinuclear antibody is negative. We will follow with you. Ricardo Reed MD
[2018-03-13 07:11] LABS: HEMOGLOBIN 10.8 g/dL (12.0-16.0); MEAN CELL VOLUME 81.5 fl (80.0-105.0); MEAN CORPUSCULAR HEMOGLOBIN 26.6 pg (25.0-35.0); MEAN CORPUSCULAR HGB CONC 32.6 g/dl (31.0-37.0); MEAN PLATELET VOLUME 10.9 fl (7.0-11.0); RBC 4.06 10^6/uL (3.5-6.1); RED CELL DISTRIBUTION WIDTH 12.7 % (11.5-14.5); WHITE BLOOD COUNT 5.3 10^3/uL (4.5-11.0)
--- NOTE | 2018-03-13 07:17 | CP.PCM.PN ---
<Naga Wolfe - Last Filed: 03/13/18 08:55> Subjective - Date & Time of Evaluation Date of Evaluation: 03/13/18 Time of Evaluation: 07:25 - Subjective Subjective: PGY-4 GI Fellow Prog Note Pt lying in bed when seen this AM. States she had multiple loose BMs post Mag Citrate yesterday. States she is tolerating soft diet well and would like diet advanced. Denied any abd pain, N/V. 5 point ROS negative other than stated above Objective - Vital Signs/Intake and Output Vital Signs (last 24 hours): Temp Pulse Resp BP Pulse Ox 98.4 F 79 20 127/94 H 98 03/12/18 22:31 03/12/18 22:31 03/12/18 22:31 03/12/18 22:31 03/12/18 22:31 Intake and Output: 03/13/18 03/13/18 06:59 18:59 Intake Total 3120 Balance 3120 - Medications Medications: Current Medications Acetaminophen (Tylenol 325mg Tab) 650 mg PO Q4H PRN PRN Reason: Fever >100.4 F Last Admin: 03/10/18 20:42 Dose: 650 mg Docusate Sodium (Colace) 100 mg PO DAILY [facility] Last Admin: 03/12/18 10:12 Dose: 100 mg Hydromorphone HCl (Dilaudid) 1 mg IVP Q3 PRN PRN Reason: Pain, moderate (4-7) Last Admin: 03/11/18 17:47 Dose: 1 mg Dextrose/Sodium Chloride (Dextrose 5%/0.9% Ns 1000 Ml) 1,000 mls @ 100 mls/hr IV .Q10H [facility] Last Admin: 03/12/18 16:38 Dose: Not Given Insulin Human Regular (Humulin R Med) 0 units SC [facility]; Protocol Last Admin: 03/12/18 16:39 Dose: Not Given Ketorolac Tromethamine (Toradol) 30 mg IVP Q6H PRN PRN Reason: Pain, moderate (4-7) Last Admin: 03/12/18 17:44 Dose: 30 mg Ondansetron HCl (Zofran Inj) 4 mg IVP Q6H PRN PRN Reason: Nausea/Vomiting Last Admin: 03/10/18 13:41 Dose: 4 mg Ondansetron HCl (Zofran Inj) 4 mg IVP ONCE PRN PRN Reason: Nausea/Vomiting Polyethylene Glycol (Miralax) 17 gm PO BID [facility] Last Admin: 03/12/18 18:17 Dose: Not Given - Labs Labs: 03/13/18 06:45 03/12/18 07:20 PT 13.7 SECONDS (9.4-12.5) H 03/08/18 16:35 INR 1.20 03/08/18 16:35 APTT 25.6 Seconds (25.1-36.5) 03/08/18 16:35 - Constitutional Appears: Well, No Acute Distress - Head Exam Head Exam: ATRAUMATIC, NORMAL INSPECTION - Eye Exam Eye Exam: EOMI. absent: Scleral icterus - ENT Exam ENT Exam: Mucous Membranes Moist. absent: Mucous Membranes Dry - Neck Exam Additional comments: L neck dressing in place - Respiratory Exam Respiratory Exam: NORMAL BREATHING PATTERN. absent: Accessory Muscle Use, Respiratory Distress - GI/Abdominal Exam GI & Abdominal Exam: Soft. absent: Bruit, Distended, Firm, Guarding, Rigid, Tenderness, Mass, Normal Bowel Sounds, Organomegaly, Pulsatile Mass Additional comments: exam limited due to body habitus Assessment and Plan - Assessment and Plan (Free Text) Assessment: #Tender neck mass, Left #Morbid obesity #Fatty liver #Elevated liver tests #Nausea/vomiting Plan: -Elevated liver tests likely related to obesity, possible previous abx use or viral infection or systemic illness. EBV related with elevated IgG? -PIPER negative, CMV pending -U/S abdomen shows no focal hepatic disease. Liver is fatty. No splenomegaly. -Continue zofran PRN, IVF. Nausea/vomiting likely secondary to opiate use. -Adv diet to regular today -Miralax PRN, good BMs post Mag Citrate on 03/12 -Neck biopsy results pending Pt discussed with Dr. Patel; please see attestation for further recs/changes. Thank you for the consult, will sign off. Please call if questions. <Cuco Patel - Last Filed: 03/13/18 12:55> Objective - Vital Signs/Intake and Output Vital Signs (last 24 hours): Temp Pulse Resp BP Pulse Ox 98.5 F 92 H 18 136/70 98 03/13/18 07:00 03/13/18 09:51 03/13/18 07:00 03/13/18 09:51 03/13/18 07:00 Intake and Output: 03/13/18 03/13/18 06:59 18:59 Intake Total 3120 Balance 3120 - Medications Medications: Current Medications Acetaminophen (Tylenol 325mg Tab) 650 mg PO Q4H PRN PRN Reason: Fever >100.4 F Last Admin: 03/10/18 20:42 Dose: 650 mg Amlodipine Besylate (Norvasc) 5 mg PO DAILY [facility] Last Admin: 03/13/18 09:51 Dose: 5 mg Docusate Sodium (Colace) 100 mg PO DAILY [facility] Last Admin: 03/13/18 09:46 Dose: Not Given Hydromorphone HCl (Dilaudid) 1 mg IVP Q3 PRN PRN Reason: Pain, moderate (4-7) Last Admin: 03/11/18 17:47 Dose: 1 mg Dextrose/Sodium Chloride (Dextrose 5%/0.9% Ns 1000 Ml) 1,000 mls @ 100 mls/hr IV .Q10H [facility] Last Admin: 03/12/18 16:38 Dose: Not Given Insulin Human Regular (Humulin R Med) 0 units SC [facility]; Protocol Last Admin: 03/13/18 12:23 Dose: Not Given Ketorolac Tromethamine (Toradol) 30 mg IVP Q6H PRN PRN Reason: Pain, moderate (4-7) Last Admin: 03/12/18 17:44 Dose: 30 mg Ondansetron HCl (Zofran Inj) 4 mg IVP Q6H PRN PRN Reason: Nausea/Vomiting Last Admin: 03/10/18 13:41 Dose: 4 mg Ondansetron HCl (Zofran Inj) 4 mg IVP ONCE PRN PRN Reason: Nausea/Vomiting Polyethylene Glycol (Miralax) 17 gm PO BID [facility] Last Admin: 03/13/18 09:47 Dose: Not Given - Labs Labs: 03/13/18 06:45 03/13/18 06:45 PT 13.7 SECONDS (9.4-12.5) H 03/08/18 16:35 INR 1.20 03/08/18 16:35 APTT 25.6 Seconds (25.1-36.5) 03/08/18 16:35 Attending/Attestation - Attestation I have personally seen and examined this patient.: Yes I have fully participated in the care of the patient.: Yes I have reviewed all pertinent clinical information, including history, physical exam and plan: Yes Notes (Text): 03/13/18 12:52 I have seen and examined patient with GI fellow. No acute events overnight, she is seen resting in bed comfortably. She had multiple bowel movements following use of magnesium citrate yesterday. She denies abdominal pain, nausea, vomiting, fever/chills. Tolerating PO diet without difficulty. L neck mass, s/p biopsy Constipation, resolved Transaminitis Obesity - Advance diet as tolerated - Continue with antibiotic therapy as per ID - Maintain bowel regimen to prevent recurrent constipation - LFTs stable, continue to monitor. Elevation likely multifactorial given NAFLD in setting of antibiotic therapy, possible EBV - Patient will need outpatient liver function test monitoring within 2 weeks. No further planned GI intervention at this time, will sign off case. Please reconsult as necesary, thank you.
[2018-03-13 07:27] LABS: ALB/GLOB RATIO 1.1 (1.1-1.8); ALBUMIN 3.9 g/dL (3.0-4.8); ALT/SGPT 158 U/L (7-56); AST/SGOT 133 U/L (14-36); BLOOD UREA NITROGEN 7 mg/dL (7-21); CALCIUM 8.7 mg/dL (8.4-10.5); GFR NON-AFRICAN AMERICAN > 60
[2018-03-13] MEDS: Insulin Reg-MEDIUM-Coverage SC SCH ×2 (08:00→12:23)
[2018-03-13 09:46] VITALS: RESP 18
[2018-03-13] MEDS: POLYETHYLENE GLYCOL 3350 17 GM/Dose PACKET PO SCH (09:47)
--- NOTE | 2018-03-13 10:13 | DS ---
HISTORY OF PRESENT ILLNESS: She is doing much better. She is off antibiotics. The left side of the face is still swollen, but not as bad as when she came in. We will discharge her today. She is on clear liquid diet at home. She will follow up with me in the office. Awaiting for the pathology report to come back of the biopsy. She is going to go home on her control pills Zofran, tramadol, Colace, I am adding Norvasc 5 mg a day for blood pressure. We will follow that also on outpatient. The patient had a left jaw mass. Vance Saucedo DO
[2018-03-13 14:44] VITALS: BP 148/107; PULSE 95; TEMP 98.7; O2SAT 99
--- NOTE | 2018-03-13 16:07 | PN ---
DATE: 03/13/2018 SUBJECTIVE: I saw her resting comfortably in bed. She is alert. She is taking clear liquids okay. She has a severe sore throat. The swelling on her face is still present, but may be a little bit better. She is uncomfortable, lots of pain. PHYSICAL EXAMINATION: VITAL SIGNS: She has 98.4 temperature, 79 pulse; 127/94 blood pressure, was started on blood pressure medication, it was 138/99 yesterday night; 20 respiratory rate, 98% O2 sat on room air. HEENT: Head is atraumatic, normocephalic. The left side of the face is very swollen and bandaged status post biopsy. HEART: Regular rate with decreased breath sounds, but clear. ABDOMEN: Soft, obese. EXTREMITIES: No edema. MEDICATIONS: She is currently on Colace, dextrose, Dilaudid, insulin, MiraLax, Toradol, Tylenol, and Zofran. LABORATORY DATA: She has a white count of 5.3, hemoglobin 10.8, hematocrit 33.1, platelets 205. 142 sodium, potassium 3.9, BUN 7, creatinine 0.6, calcium 8.7, total bili is 0.3. AST is 133, ALT is 158, alk phos 76, total protein 7.5. Urine looks clean. She is being seen by Infectious Disease, Ear Nose and Throat, Gastrointestinal. She is on a clear fluid diet. Awaiting for the pathology report to come back on the biopsy of the left jaw mass. She also is starting to have a cough and she is going to take liquids at this time. Continue with aggressive treatment. Vance Saucedo DO MTDD
[2018-03-16 13:11] LABS: BARTONELLA HENSELAE DNA NOT DETECTED; SOURCE WHOLE BLOO
== END 2018-03-13 18:27 | disposition home or self-care (01) | DRG 803 ==
LOC: ED 01:08 → ERH 02:10 → 5RSO 03:45
PROVIDERS: ADMIT Family Medicine; ATTEND Family Medicine
PROC: 07B20ZX Excision of Left Neck Lymphatic, Open Approach, Diagnostic (ICD-10-PCS; principal; 2018-03-09 14:45)
DX: I88.9 Nonspecific lymphadenitis, unspecified (principal); Z68.41 Body mass index [BMI] 40.0-44.9, adult; E11.9 Type 2 diabetes mellitus without complications; J02.9 Acute pharyngitis, unspecified; K59.00 Constipation, unspecified; R13.10 Dysphagia, unspecified; K76.0 Fatty (change of) liver, not elsewhere classified; E66.01 Morbid (severe) obesity due to excess calories; F12.90 Cannabis use, unspecified, uncomplicated; Z80.7 Family history of other malignant neoplasms of lymphoid, hematopoietic and related tissues